=== PATIENT | female | born 1930 | race Caucasian/White ===

== ENCOUNTER 2017-03-12 19:00 | Inpatient (IN) | payer OTHER, BC ==
--- NOTE | 2017-03-12 19:31 | PDOC ---
History of Present Illness <Marilee Ruby - Last Filed: 03/12/17 21:41> <Anuradha Thakkar - Last Filed: 03/13/17 05:22> - General Chief Complaint: Shortness of Breath Stated Complaint: SOB Time Seen by Provider: 03/12/17 19:14 - History of Present Illness Initial Comments: 03/12/17 20:37 The patient is an 86-year-old female, with a significant past medical history of CHF and dementia, who was sent in by her PCP Dr. Solis for CHF exacerbation. Daughter states that the pt developed swelling in the lower extremities back in January, which was localized to her feet and ankles. Over the course of two months the swelling has progressively worsened and has radiated up to her knees bilaterally. She also developed abdominal distension within the last two days. She is currently on diuretics 2x a day. As per daughter, pt has been very lethargic and has not been getting much sleep at night. She does have nursing aides that stay overnight and give updates to the pt's daughter. Pt had an echo , chest x-ray, and doppler done last week. The chest x-ray revealed fluid in the lungs. She also had an US done of the lower extremities on the 04 of March that was negative for DVTs. Daughter states that the patient is unable to ambulate more than a few steps without her feeling short of breath. Daughter denies that the pt is experiencing any fever, chills, nausea, vomiting , diarrhea, or abdominal pain. She denies any chest pain. PCP: Dr. Solis (Marilee Ruby) Past History <Marilee Ruby - Last Filed: 03/12/17 21:41> - Past Medical History COPD: No Dementia: Yes - Suicide/Smoking/Psychosocial Hx Smoking History: Never smoked Hx Alcohol Use: No Drug/Substance Use Hx: No <Anuradha Thakkar - Last Filed: 03/13/17 05:22> - Past Medical History Allergies/Adverse Reactions: Allergies Allergy/AdvReac Type Severity Reaction Status Date / Time lamotrigine [From Lamictal] Allergy Rash Verified 03/12/17 19:02 Home Medications: Ambulatory Orders Furosemide [Lasix] 40 mg PO BID 03/12/17 Mirtazapine [Remeron -] 15 mg PO DAILY 03/12/17 Quetiapine Fumarate [Seroquel] tab PO HS 03/12/17 Trazodone HCl 50 mg PO HS 03/12/17 Review of Systems - Review of Systems Able to Perform ROS?: Yes <Marilee Ruby - Last Filed: 03/12/17 21:41> <Anuradha Thakkar - Last Filed: 03/13/17 05:22> - Review of Systems Comments:: 03/12/17 20:41 CONSTITUTIONAL: Present: lethargy Absent: fever, chills, diaphoresis, generalized weakness, malaise, loss of appetite HEENT: Absent: rhinorrhea, nasal congestion, throat pain, throat swelling, difficulty swallowing, mouth swelling, ear pain, eye pain, visual Changes CARDIOVASCULAR: Absent: chest pain, syncope, palpitations, irregular heart rate, lightheadedness , peripheral edema RESPIRATORY: Absent: cough, shortness of breath, dyspnea with exertion, orthopnea, wheezing, stridor, hemoptysis GASTROINTESTINAL: Present: abdominal distension Absent: abdominal pain, nausea, vomiting, diarrhea, constipation, melena, hematochezia GENITOURINARY: Absent: dysuria, frequency, urgency, hesitancy, hematuria, flank pain, genital pain MUSCULOSKELETAL: Absent: myalgia, arthralgia, joint swelling EXTREMITIES: Present: bilateral pitting edema of the lower extremities SKIN: Absent: rash, itching, pallor HEMATOLOGIC/IMMUNOLOGIC: Absent: easy bleeding, easy bruising, lymphadenopathy, frequent infections ENDOCRINE: Absent: unexplained weight gain, unexplained weight loss, heat intolerance, cold intolerance NEUROLOGIC: Absent: headache, focal weakness or paresthesias, dizziness, unsteady gait, seizure, mental status changes, bladder or bowel incontinence PSYCHIATRIC: Absent: anxiety, depression, suicidal or homicidal ideation, hallucinations. (TungMarilee) *Physical Exam <Yessenia Rubyie - Last Filed: 03/12/17 21:41> <Anuradha Thakkar - Last Filed: 03/13/17 05:22> - Vital Signs Last Vital Signs Temp Pulse Resp BP Pulse Ox 97.9 F 103 H 18 109/47 94 L 03/12/17 23:30 03/12/17 23:30 03/12/17 23:30 03/12/17 23:30 03/12/17 23:30 - Physical Exam Comments: 03/12/17 20:54 GENERAL: Awake and alert. No acute distress. HEENT: Normocephalic, atraumatic. PERRLA, EOMI. No conjunctival pallor. Sclera are non- icteric. Moist mucous membranes. Oropharynx is clear. NECK: Supple. Full ROM. No JVD. Carotid pulses 2+ and symmetric, without bruits. No thyromegaly. No lymphadenopathy. CARDIOVASCULAR: Regular rate and rhythm. No murmurs, rubs, or gallops. Distal pulses are 2+ and symmetric. PULMONARY: (+)Bilateral rales third of the way up. No wheezing or rhonchi. ABDOMINAL: (+)Abdomen was moderately distended especially in the bilateral lower quadrants. Non-tender. No rebound or guarding. No organomegaly. Normoactive bowel sounds. MUSCULOSKELETAL Normal range of motion at all joints. No bony deformities or tenderness. No CVA tenderness. EXTREMITIES: (+)3+ pitting edema to the thighs. Feet are cool to touch, mildly cyanotic bilaterally with fair cap refill. No skin breakdown noted. No clubbing. No calf tenderness. SKIN: Warm and dry. Normal capillary refill. No rashes. No jaundice. NEUROLOGICAL: Alert, awake. PSYCHIATRIC: Cooperative. Good eye contact. Appropriate mood and affect. (Marilee Ruby) ED Treatment Course - LABORATORY CBC & Chemistry Diagram: 03/12/17 19:55 03/12/17 19:55 <Marilee Ruby - Last Filed: 03/12/17 21:41> - LABORATORY CBC & Chemistry Diagram: 03/12/17 19:55 03/12/17 19:55 <Anuradha Thakkar - Last Filed: 03/13/17 05:22> - ADDITIONAL ORDERS Additional order review: Laboratory Results 03/12/17 03/12/17 03/12/17 19:55 19:55 19:55 PT with INR 12.3 INR 1.10 Sodium 137 Potassium 4.0 Chloride 100 Carbon Dioxide 28 Anion Gap 9 BUN 26 H D Creatinine 0.9 D Creat Clearance w eGFR 59.51 Random Glucose 95 Calcium 9.0 Total Bilirubin 0.9 AST 24 D ALT 28 D Alkaline Phosphatase 113 H D Creatine Kinase 64 Troponin I 0.21 B-Natriuretic Peptide 8008.39 H Total Protein 6.2 L Albumin 3.3 L 03/12/17 19:55 RBC 4.01 MCV 93.4 MCHC 33.4 RDW 14.8 MPV 11.3 H D Neutrophils % 71.6 Lymphocytes % 20.0 Monocytes % 5.1 Eosinophils % 2.3 Basophils % 1.0 - RADIOLOGY Radiology Studies Ordered: Category Date Time Status CHEST X-RAY PORTABLE* [RAD] Stat Radiology 03/12/17 19:48 Completed - Medications Given in the ED: ED Medications Discontinued Medications Generic Name Dose Route Start Last Admin Trade Name Shon PRN Reason Stop Dose Admin Furosemide 80 mg 03/12/17 20:59 03/12/17 21:05 Lasix Injection - IVPUSH 03/12/17 21:00 80 mg ONCE ONE Administration Progress Note <Marilee Ruby - Last Filed: 03/12/17 21:41> <Anuradha Thakkar - Last Filed: 03/13/17 05:22> - Progress Note Progress Note: Documentation has been prepared under my direction and personally reviewed by me in its entirety. I attest that this documented accurately reflects all work, treatment, procedures and medical decision making performed by me. (Anuradha Thakkar) Medical Decision Making <Marilee Ruby - Last Filed: 03/12/17 21:41> <Anuradha Thakkar - Last Filed: 03/13/17 05:22> - Medical Decision Making As noted above, this 86-year-old woman with a history of CHF and dementia was sent to the ER by Dr. Solis with rapidly progressive CHF over the last few weeks. Exam as noted above. Chest x-ray performed showed bilateral pleural effusions with cephalization of flow as noted on chest x-ray performed 2 days ago. There are somewhat increased markings in upper lung hawkins and no apparent change in effusions. Cardiomegaly is present Laboratory evaluation showed normal electrolytes with BUN of 26 and creatinine of 0.9. Troponin is elevated at 0.21. BNP is also markedly elevated at 8009. CBC is normal without elevation of the white blood cell count. Twelve-lead EKG performed and this shows normal sinus rhythm at 71 bpm. There is left axis deviation with poor R-wave progression. There are no acute ST or T -wave abnormalities. There is no previous tracing for comparison. Furosemide 80 mg IV administered. In-hospital admission warranted for cardiology consultation with close observation while diuresis progresses. [facility] hospitalist service contacted. Case discussed with SD Dong . The patient will be admitted to telemetry service 03/13/17 05:22 (Anuradha Thakkar) *DC/Admit/Observation/Transfer <Marilee Ruby - Last Filed: 03/12/17 21:41> - Discharge Dispostion Admit: Yes <Anuradha Thakkar - Last Filed: 03/13/17 05:22> Diagnosis at time of Disposition: CHF (congestive heart failure) Qualifiers: Congestive heart failure type: unspecified congestive heart failure type Congestive heart failure chronicity: acute on chronic Qualified Code(s): I50.9 - Heart failure, unspecified - Discharge Dispostion Condition at time of disposition: Stable Decision to Admit order Date/Time: Decision to Admit Order Category Date Time Status Decision to Admit to Hospital Routine Admission 03/12/17 22:03 Active - Attestations Scribe Attestion: 03/12/17 20:59 Documentation prepared by Marilee Ruby, acting as medical artist for Anuradha Thakkar MD. (Marilee Ruby)
[2017-03-12 20:19] LABS: ALBUMIN 3.3 g/dl (3.5-5.0); ALK PHOS 113 U/L (32-92); ANION GAP 9 (8-16); BILIRUBIN,TOTAL 0.9 mg/dl (0.2-1.0); CO2 28 mmol/L (22-28); CPK 64 IU/L (26-192); CREATININE 0.9 mg/dl (0.6-1.3); GLUCOSE,RANDOM 95 mg/dl (74-106); MEAN CELL VOLUME 93.4 fl (80-96); SGOT/AST 24 U/L (10-42); SGPT/ALT 28 U/L (10-40); TOT PROT 6.2 g/dl (6.4-8.3)
[2017-03-12 20:26] LABS: EOS % 2.3 % (0-4.5); MCH 31.2 pg (25.7-33.7); MCHC 33.4 g/dl (32.0-36.0); MEAN PLT VOLUME 11.3 fl (7.5-11.1); NEUT % 71.6 % (42.8-82.8); PLATELET COUNT 236 K/MM3 (134-434); RDW 14.8 % (11.6-15.6); WHITE BLOOD COUNT 7.3 K/mm3 (4.0-10.8)
[2017-03-12 20:39] LABS: TROPONIN I (DFP) 0.21 ng/ml (0.03-0.50)
[2017-03-12 20:49] LABS: INR 1.1 (0.82-1.09); PROTHROMBIN TIME (PATIENT) 12.3 SEC (10.2-13.0)
[2017-03-12] MEDS ORDERED: FUROSEMIDE 40 MG/4 ML INJECTABLE VIAL IVPUSH ONE (20:59)
[2017-03-12] MEDS ORDERED: FUROSEMIDE 40 MG/4 ML INJECTABLE VIAL ONE (21:02)
[2017-03-12 23:20] LABS: PH,URINE 5.5 (4.5-8); URINE APPEARANCE Clear; URINE BILIRUBIN Negative (NEGATIVE); URINE BLOOD Negative (NEGATIVE); URINE GLUCOSE (UA) Negative (NEGATIVE); URINE KETONE Negative (NEGATIVE); URINE LEUK ESTERASE Negative (NEGATIVE); URINE NITRITE Negative (NEGATIVE); URINE PROTEIN Negative (NEGATIVE); URINE UROBILINOGEN 0.2 (0.2-1.0)
[2017-03-12 23:21] LABS: URINE COLOR YELLOW
--- NOTE | 2017-03-13 00:21 | HP ---
CHIEF COMPLAINT: Leg swelling PCP: Irma HISTORY OF PRESENT ILLNESS: This is an 86 year old female with a significant PMH of CHF who presented to the ED with B/L leg swelling and abdominal distension. Pt's legs have been increasingly swollen since January and now swelling is throughout entire B/L LE. Daughter also noticed abdominal distention over the past 2 days. She has been following with Dr. Solis as an outpatient who has increased her home diuretic dose without improvement. Pt has dementia and is unable to provide any information. She does admit to some recent SOB upon questioning. ER course was notable for: (1) BNP 8008, Trop 0.21 (2) BUN 26/Cr 0.9 (3) Recent Travel: unknown PAST MEDICAL HISTORY: CHF, dementia, depression PAST SURGICAL HISTORY: lumpectomy Left breast ductal carcinoma cataract surgery Social History: Smoking: pt denies Alcohol: pt denies Drugs: pt denies Family History: unknown Allergies lamotrigine [From Lamictal] Allergy (Verified 03/12/17 19:02) Rash HOME MEDICATIONS: 3 Medication Instructions Recorded Furosemide [Lasix] 40 mg PO BID 03/12/17 Mirtazapine [Remeron -] 15 mg PO DAILY 03/12/17 Quetiapine Fumarate [Seroquel] tab PO HS 03/12/17 Trazodone HCl 50 mg PO HS 03/12/17 REVIEW OF SYSTEMS CONSTITUTIONAL: Absent: fever, chills, diaphoresis, generalized weakness, malaise, loss of appetite, weight change HEENT: Absent: rhinorrhea, nasal congestion, throat pain, throat swelling, difficulty swallowing, mouth swelling, ear pain, eye pain, visual changes CARDIOVASCULAR: Present: peripheral edema Absent: chest pain, syncope, palpitations, irregular heart rate, lightheadedness RESPIRATORY: Present: shortness of breath, dyspnea with exertion Absent: cough, orthopnea, wheezing, stridor, hemoptysis GASTROINTESTINAL: Absent: abdominal pain, abdominal distension, nausea, vomiting, diarrhea, constipation, melena, hematochezia GENITOURINARY: Absent: dysuria, frequency, urgency, hesitancy, hematuria, flank pain, genital pain MUSCULOSKELETAL: Absent: myalgia, arthralgia, joint swelling, back pain, neck pain SKIN: Absent: rash, itching, pallor HEMATOLOGIC/IMMUNOLOGIC: Absent: easy bleeding, easy bruising, lymphadenopathy, frequent infections ENDOCRINE: Absent: unexplained weight gain, unexplained weight loss, heat intolerance, cold intolerance NEUROLOGIC: Absent: headache, focal weakness or paresthesias, dizziness, unsteady gait, seizure, mental status changes, bladder or bowel incontinence PSYCHIATRIC: Absent: anxiety, depression, suicidal or homicidal ideation, hallucinations. PHYSICAL EXAMINATION Vital Signs - 24 hr 3 03/12/17 03/12/17 19:00 19:05 Pulse Rate 84 82 Respiratory 20 Rate Blood Pressure 121/62 O2 Sat by Pulse 96 98 Oximetry (%) GENERAL: Awake, alert, and fully oriented, in no acute distress. HEAD: Normal with no signs of trauma. EYES: Pupils equal, round and reactive to light, extraocular movements intact, sclera anicteric, conjunctiva clear. No lid lag. EARS, NOSE, THROAT: Ears normal, nares patent, oropharynx clear without exudates. Moist mucous membranes. NECK: Normal range of motion, supple without lymphadenopathy, JVD, or masses. LUNGS: Breath sounds equal, diminished bilateral bases, + crackles. No wheezes. No accessory muscle use. HEART: Regular rate and rhythm, normal S1 and S2 without murmur, rub or gallop. ABDOMEN: Soft, nontender, not distended, normoactive bowel sounds, no guarding, no rebound, no masses. No hepatomegaly or splenomegaly. MUSCULOSKELETAL: Normal range of motion at all joints. No bony deformities or tenderness. No CVA tenderness. UPPER EXTREMITIES: 2+ pulses, warm, well-perfused. No cyanosis. No clubbing. No peripheral edema. LOWER EXTREMITIES: 2+ pulses, warm, well-perfused. No calf tenderness. 3+ pitting peripheral edema ankles extending into thighs and buttocks, 1+ pitting in thighs. No edema noted in abdominal area NEUROLOGICAL: Cranial nerves II-XII intact. Normal speech. Normal gait. PSYCHIATRIC: Cooperative. Good eye contact. Appropriate mood and affect. SKIN: Warm, dry, normal turgor, no rashes or lesions noted, normal capillary refill. Laboratory Results - last 24 hr 3 03/12/17 03/12/17 03/12/17 19:55 19:55 19:55 WBC 7.3 RBC 4.01 Hgb 12.5 Hct 37.4 MCV 93.4 MCH 31.2 MCHC 33.4 RDW 14.8 Plt Count 236 MPV 11.3 H D Neutrophils % 71.6 Lymphocytes % 20.0 Monocytes % 5.1 Eosinophils % 2.3 Basophils % 1.0 PT with INR 12.3 INR 1.10 Sodium 137 Potassium 4.0 Chloride 100 Carbon Dioxide 28 Anion Gap 9 BUN 26 H D Creatinine 0.9 D Creat Clearance w eGFR 59.51 Random Glucose 95 Calcium 9.0 Total Bilirubin 0.9 AST 24 D ALT 28 D Alkaline Phosphatase 113 H D Creatine Kinase 64 Troponin I 0.21 B-Natriuretic Peptide 8008.39 H Total Protein 6.2 L Albumin 3.3 L Urine Color Urine Appearance Urine pH Ur Specific [place] Urine Protein Urine Glucose (UA) Urine Ketones Urine Blood Urine Nitrite Urine Bilirubin Urine Urobilinogen Ur Leukocyte Esterase 3 Urine Color Yellow 03/12/17 23:10 Urine Appearance Clear 03/12/17 23:10 Urine pH 5.5 (4.5-8) 03/12/17 23:10 Ur Specific [place] 1.015 (1.005-1.025) 03/12/17 23:10 Urine Protein Negative (NEGATIVE) 03/12/17 23:10 Urine Glucose (UA) Negative (NEGATIVE) 03/12/17 23:10 Urine Ketones Negative (NEGATIVE) 03/12/17 23:10 Urine Blood Negative (NEGATIVE) 03/12/17 23:10 Urine Nitrite Negative (NEGATIVE) 03/12/17 23:10 Urine Bilirubin Negative (NEGATIVE) 03/12/17 23:10 Ur Leukocyte Esterase Negative (NEGATIVE) 03/12/17 23:10 ECG NSR vent rate 71, QTC 471 Left axis deviation Inferior infarct, age undetermined Anterior infarct, age undetermined ST & T wave abnormality, TWI lead 1, aVL Radiology Reports Chest portable one view Clinical information: dyspnea Interstitial pulmonary vascular congestion is noted with moderate bilateral pleural effusions. There is resultant bibasilar compressive atelectasis. A superimposed basilar infiltrate would be difficult to exclude on a radiographic basis only. Correlate clinically. As on a previous exam of there is enlargement of the cardiac silhouette. The mediastinum and lisa demonstrate no obvious abnormality. Impression: Pulmonary vascular congestion with bilateral pleural effusions. Reported By: Tuan Poon MD 03/12/17 3300 ECHO 03/05/17 Left ventricular size and systolic function are normal, EF 60-65% diastolic dysfunction, grade 3 mod to severe LVH trivial aortic sclerosis mild aortic regurg mild mitral annular calcification, and mild MV thickening mod mitral regurg mod-severe tricuspid regurg small pericardial effusion (<1cm) moderate left pleural effusion ASSESSMENT/PLAN: 86yF with PMH CHF, dementia, depression presented to ED from PCP office with B/ L LE edema. acute on chronic diastolic CHF with pulmonary edema - given lasix 80mg IVP in ED, would cont same daily - cardiology consult, PCP requesting Alabre - consider adding metolazone but will defer to cardiology - echo done, as above - daily weights, I&O dementia/depression - mildly combative on exam - cont seroquel, monitor QTC - cont remeron DVT PPX - heparin BID FEN - po fluids as tolerated - BMP in am, monitor Cr closely - low sodium diet Dispo: The patient's condition has continued to decline despite appropriate outpatient management of her CHF with diuretics and she requires inpatient management of her emergent condition at this time. Her expected LOS is greater than 48h. Visit type - Emergency Visit Emergency Visit: Yes ED Registration Date: 03/12/17 Care time: The patient presented to the Emergency Department on the above date and was hospitalized for further evaluation of their emergent condition. - New Patient This patient is new to me today: Yes Date on this admission: 03/13/17 - Critical Care Critical Care patient: No
[2017-03-13 00:54] VITALS: BMI 25.1
[2017-03-13 02:36] LABS: TROPONIN I 0.21 ng/ml (0.00-0.05)
--- NOTE | 2017-03-13 07:59 | PN ---
Physical Exam: SUBJECTIVE: Patient seen and examined, agitated, denies any chest pain, does report dyspnea upon exertion OBJECTIVE: patient is a 86 y/o female with a past medical history of depression , diastolic congestive heart failure, and depression. Patient was admitted from the emergency department for acute on chronic diastolic congestive heart failure exacerbation. PCP: Dr Solis exchange architect: Dr Aceves Vital Signs Period Temp Pulse Resp BP Sys/Bardales Pulse Ox Last 24 Hr 97.9 F-98.1 F 69-103 18-20 100-121/47-62 94-98 GENERAL: The patient is awake, alert, and oriented times person, agitated HEAD: Normal with no signs of trauma. EYES: PERRL, extraocular movements intact, sclera anicteric, conjunctiva clear. No ptosis. ENT: Ears normal, nares patent, oropharynx clear without exudates, moist mucous membranes. NECK: Trachea midline, full range of motion, supple. LUNGS: Breath sounds equal, clear to auscultation bilaterally to apexes, crackles to bilateral bases, no wheezes, no accessory muscle use. HEART: Regular rate and rhythm, S1, S2 without murmur, rub or gallop. ABDOMEN: Soft, nontender, nondistended, normoactive bowel sounds, no guarding, no rebound, no hepatosplenomegaly, no masses. EXTREMITIES: 2+ pulses, warm, well-perfused, +3 edema bilaterally lower extremity. NEUROLOGICAL: Cranial nerves II through XII grossly intact. Normal speech, gait not observed. PSYCH: Normal mood, normal affect. SKIN: Warm, dry, normal turgor, no rashes or lesions noted, stage II cocycox and tinea under bilateral breasts Laboratory Results - last 24 hr CBC WBC 7.5 K/mm3 (4.0-10.8) 03/13/17 07:00 RBC 3.71 M/mm3 (3.60-5.2) 03/13/17 07:00 Hgb 11.6 GM/dl (10.7-15.3) 03/13/17 07:00 Hct 34.7 % (32.4-45.2) 03/13/17 07:00 MCV 93.5 fl (80-96) 03/13/17 07:00 MCH 31.1 pg (25.7-33.7) 03/13/17 07:00 MCHC 33.2 g/dl (32.0-36.0) 03/13/17 07:00 RDW 15.2 % (11.6-15.6) 03/13/17 07:00 Plt Count 235 K/MM3 (134-434) 03/13/17 07:00 MPV 12.1 fl (7.5-11.1) H 03/13/17 07:00 Neutrophils % 70.9 % (42.8-82.8) 03/13/17 07:00 Lymphocytes % 20.5 % (8-40) 03/13/17 07:00 Monocytes % 6.2 % (3.8-10.2) 03/13/17 07:00 Eosinophils % 1.4 % (0-4.5) 03/13/17 07:00 Basophils % 1.0 % (0-2.0) 03/13/17 07:00 CMP Sodium 139 mmol/L (136-145) 03/13/17 07:00 Potassium 3.7 mmol/L (3.5-5.1) 03/13/17 07:00 Chloride 104 mmol/L (98-107) 03/13/17 07:00 Carbon Dioxide 26 mmol/L (22-28) 03/13/17 07:00 Anion Gap 9 (8-16) 03/13/17 07:00 BUN 28 mg/dl (7-18) H 03/13/17 07:00 Creatinine 1.0 mg/dl (0.6-1.3) 03/13/17 07:00 Creat Clearance w eGFR 59.51 (>60) 03/12/17 19:55 Random Glucose 111 mg/dl (74-106) H 03/13/17 07:00 Calcium 8.6 mg/dl (8.4-10.2) 03/13/17 07:00 Phosphorus 4.3 mg/dl (2.5-4.6) 03/13/17 07:00 Magnesium 2.2 mg/dL (1.8-2.4) 03/13/17 07:00 Total Bilirubin 0.9 mg/dl (0.2-1.0) 03/12/17 19:55 AST 24 U/L (10-42) D 03/12/17 19:55 ALT 28 U/L (10-40) D 03/12/17 19:55 Alkaline Phosphatase 113 U/L (32-92) H D 03/12/17 19:55 Creatine Kinase 63 IU/L (26-192) 03/13/17 07:00 Troponin I 0.22 ng/ml (0.03-0.50) 03/13/17 07:00 B-Natriuretic Peptide 8008.39 pg/ml (5-450) H 03/12/17 19:55 Total Protein 6.2 g/dl (6.4-8.3) L 03/12/17 19:55 Albumin 3.3 g/dl (3.5-5.0) L 03/12/17 19:55 Laboratory Tests 03/12/17 03/13/17 03/13/17 19:55 02:00 07:00 Troponin I 0.21 0.21 H 0.22 Active Medications Generic Name Dose Route Start Last Admin Trade Name Freq PRN Reason Stop Dose Admin Furosemide 80 mg 03/13/17 10:00 Lasix Injection - IVPUSH DAILY PAULINA Heparin Sodium (Porcine) 5,000 unit 03/13/17 10:00 Heparin - SQ BID PAULINA Mirtazapine 15 mg 03/13/17 10:00 Remeron - PO DAILY PAULINA Quetiapine Fumarate 100 mg 03/13/17 22:00 Seroquel - PO HS PAULINA Trazodone HCl 50 mg 03/13/17 22:00 Desyrel - PO HS PAULINA IMAGING chest xray 03/12/17, bilateral pulmonary vascular congestion echo 03/05/17: moderated left pleural effusion, ef 60-65%, grade III diastolic dyfunction ASSESSMENT/PLAN: 1) cardiovascular acute on chronic diastolic congestive heart failure - continue lasix 40mg BID - daily weight, stict i/o - appreciate pulmonary input, moderate left pulmonary effusion noted on echo, patient may require thorancentesis - Dr Harrell, cardiology consulted and following 2) psych dementia - continue seroquel and trazodone - fall precautions f/e/n - low sodium diet - replete potassium ppx - pepcid - heparin -scd/moisés - oob dispo: patient requires inpatient telemetry admission - Visit type - Emergency Visit Emergency Visit: Yes ED Registration Date: 03/12/17 Care time: The patient presented to the Emergency Department on the above date and was hospitalized for further evaluation of their emergent condition. - New Patient This patient is new to me today: No - Critical Care Critical Care patient: No - Discharge Referral Referred to [facility] Med P.C.: No
[2017-03-13 08:44] LABS: EOS % 1.4 % (0-4.5); MCH 31.1 pg (25.7-33.7); MCHC 33.2 g/dl (32.0-36.0); MEAN CELL VOLUME 93.5 fl (80-96); MEAN PLT VOLUME 12.1 fl (7.5-11.1); NEUT % 70.9 % (42.8-82.8); PLATELET COUNT 235 K/MM3 (134-434); RDW 15.2 % (11.6-15.6); WHITE BLOOD COUNT 7.5 K/mm3 (4.0-10.8)
[2017-03-13 08:57] LABS: ANION GAP 9 (8-16); CALCIUM 8.6 mg/dl (8.4-10.2); CO2 26 mmol/L (22-28); CPK 63 IU/L (26-192); GLUCOSE,RANDOM 111 mg/dl (74-106); MAGNESIUM 2.2 mg/dL (1.8-2.4); PHOSPHOROUS 4.3 mg/dl (2.5-4.6)
[2017-03-13] MEDS ORDERED: FUROSEMIDE 40 MG/4 ML INJECTABLE VIAL IVPUSH ONE (09:15)
[2017-03-13] MEDS: HEPARIN NA (PORCINE) 5,000 UNITS/ML 1ML VIAL SQ SCH ×2 (09:25→21:41)
[2017-03-13] MEDS: NYSTATIN 100000 UNIT/GM TOPICAL OINTMENT 15 GM TUBE TP SCH ×2 (09:26→21:42)
[2017-03-13 09:44] LABS: TROPONIN I (DFP) 0.22 ng/ml (0.03-0.50)
[2017-03-13] MEDS ORDERED: FUROSEMIDE 40 MG/4 ML INJECTABLE VIAL IVPUSH SCH (10:00)
[2017-03-13] MEDS ORDERED: MIRTAZAPINE 15 MG TABLET (FP) PO SCH (10:00)
--- NOTE | 2017-03-13 11:20 | EKG ---
Test Reason : Blood Pressure : / mmHG Vent. Rate : 071 BPM Atrial Rate : 071 BPM P-R Int : 152 ms QRS Dur : 078 ms QT Int : 434 ms P-R-T Axes : 003 -55 114 degrees QTc Int : 471 ms NORMAL SINUS RHYTHM LEFT AXIS DEVIATION CANNOT RULE OUT INFERIOR INFARCT , AGE UNDETERMINED ANTERIOR INFARCT , AGE UNDETERMINED ABNORMAL ECG NO PREVIOUS ECGS AVAILABLE Confirmed by JEN SMILEY MD ([id number]) on 03/13/2017 11:19:52 AM Referred By: MD MORAN Confirmed By:JEN SMILEY MD
--- NOTE | 2017-03-13 11:26 | CON.CARD ---
Consult Consult Specialty:: Cardiology Referred by:: Carmen Thomas NP Reason for Consultation:: CHF - History of Present Illness Chief Complaint: SOB, pleural effusion, progresssive leg edema History of Present Illness: 86 yo female with dementia, reported PMH of CHF who was admitted on 03/12 with bilateral leg edema (since January) and abdominal distension over the past several days. Spoke with patient's daughter on phone (Raven) who reported that patient was hospitalize in [place] in January for reported "heart failure " but per daughter the diagnosis was not firm. She also reports that she was not seen by special officer at that time. She underwent an echocardiogram on which demonstrated normal LV systolic function, but mod to severe concentric LVH and grade III diastolic dysfunction (restrictive pattern), mod MR, mod to severe TR, and mild pulm HTN with PASP 49 mmHg. In ED, CXR demonstrated pulmonary congestion and bilateral pleural effusion. BNP 8008, Trops 0.21 -> 0.21 -> 0.22. Patient given furosemide 80 mg IVP x1. - History Source History Provided By: Family Member (Daughter - Raven), Medical Record Limitations to Obtaining History: Dementia - Past Medical History Cardio/Vascular: Yes: CHF Psych: Yes: Depression Additional Medical History: Recent Travel: unknown. PAST MEDICAL HISTORY: CHF , dementia, depression. PAST SURGICAL HISTORY: Social History: Smoking: pt denies. Alcohol: pt denies. Drugs: pt denies. Family History: unknown - Past Surgical History Past Surgical History: Yes: Cataract Removal Additional Surgical History: Lumpectomy of left breast for ductal carcinoma - Alcohol/Substance Use Hx Alcohol Use: No - Smoking History Smoking history: Never smoked Home Medications - Allergies Allergies/Adverse Reactions: Allergies Allergy/AdvReac Type Severity Reaction Status Date / Time lamotrigine [From Lamictal] Allergy Rash Verified 03/12/17 19:02 - Home Medications Home Medications: Ambulatory Orders Furosemide [Lasix] 40 mg PO BID 03/12/17 Mirtazapine [Remeron -] 15 mg PO DAILY 03/12/17 Quetiapine Fumarate [Seroquel] tab PO HS 03/12/17 Trazodone HCl 50 mg PO HS 03/12/17 Family Disease History - Family Disease History Family History: Unable to Obtain (Due to dementia) Review of Systems - Review of Systems Cardiovascular: reports: Edema, Shortness of Breath Gastrointestinal: reports: Other (Abdominal distension) Vital Signs: Vital Signs Temperature 97.5 F L 03/13/17 08:00 Pulse Rate 74 03/13/17 08:00 Respiratory Rate 18 03/13/17 09:00 Blood Pressure 121/55 03/13/17 08:00 O2 Sat by Pulse Oximetry (%) 94 L 03/13/17 09:00 Constitutional: Yes: No Distress Eyes: Yes: Conjunctiva Clear, EOM Intact HENT: Yes: Atraumatic, Normocephalic Respiratory: Yes: Diminished (at bilateral bases) Gastrointestinal: Yes: Normal Bowel Sounds. No: Tenderness Cardiovascular: Yes: Regular Rate and Rhythm JVD: Yes Heart Sounds: Yes: S1, S2 Murmur: No: Systolic Murmur Edema: Yes Edema: LLE: 2+, RLE: 2+ - Other Data Labs, Other Data: CBC, BMP 03/13/17 07:00 03/13/17 07:00 INR, PTT INR 1.10 (0.82-1.09) 03/12/17 19:55 Troponin, BNP 03/12/17 03/12/17 03/13/17 19:55 19:55 02:00 Troponin I 0.21 0.21 H B-Natriuretic Peptide 8008.39 H 03/13/17 07:00 Troponin I 0.22 B-Natriuretic Peptide Troponin, BNP 03/12/17 03/12/17 03/13/17 19:55 19:55 02:00 Troponin I 0.21 0.21 H B-Natriuretic Peptide 8008.39 H 03/13/17 07:00 Troponin I 0.22 B-Natriuretic Peptide 03/12/17: Sinus rhythm, rate 71 bpm, LAD, possible inferior infarct, possible anterior infarct, T wave inversion in I and aVL consider ischemia, low voltage QRS Echo: Report Reviewed (03/05/17: Normal LV size and systolic function, LVEF 60- 65%. Grade III diastolic dysfunction (restrictive pattern) with markedly increased LA pressure. Mod to severe concentric LVH. Trivial AV sclerosis. Mild AR. Mild MAC and MV thickening. Mod MR. Mod to severe TR. Mild pulm HTN w/ PASP 49 mmHg. Small pericardial effusion. Mod left pleural effusion.) Imaging - Results Chest X-ray: Report Reviewed (03/12/17: Pulmonary congestion, bilateral pleural effusions), Image Reviewed Ultrasound: Report Reviewed (03/04/17 Venous Doppler: Negative for DVTs) Assessment/Plan 86 yo female with dementia, who is admitted with acute diastolic heart failure/ heart failure with preserved EF (HFpEF) due to hypertrophic cardiomyopathy. Echo on 03/05/17 demonstrated normal LVEF with grade III diastolic dysfunction ( restrictive pattern) with mod to severe LVH, mod MR, mod to severe TR, and mild pulm HTN. Differential diagnosis for hypertrophic cardiomyopathy is infiltrative myocardial disease (e.g. amlyloidosis) versus hypertensive heart disease. Prognosis is poor given extent of diastolic dysfunction and patient's advanced age. RECS: Will continue diuresis with furosemide 40 mg IV bid. Monitor lytes and renal function with diuresis. Would consider diagnostic/therapeutic thoracentesis. Will consider beta-azeb therapy if patient's BP allows. Would also address patient's code status. Patient is likely to have recurrent admissions for heart failure. Will follow. Please call with questions.
[2017-03-13] MEDS ORDERED: POTASSIUM CHLORIDE TABS 20 MEQ TABLET.ER (FP) PO ONE (14:30)
[2017-03-13] MEDS: FUROSEMIDE 40 MG/4 ML INJECTABLE VIAL IVPUSH SCH (15:01)
--- NOTE | 2017-03-13 17:28 | PN ---
Progress Note (short form) - Note Progress Note: PULMONARY CONSULTATION DICTATED 03/13/17 IMP DYSPNEA DECOMENSATED CHF DIASTOLIC HYPERTROPHIC CARDIOMYOPATHY BILATERAL PLEURAL EFFUSIONS PULMONARY HTN DEMENTIA PLAN LASIX SUPPLEMENTAL O2 MONITOR LYTES,RENAL FUNCTION DAILY WTS F/U CHEST X-RAYS THORACENTESIS IF NO IMPROVEMENT DR KULKARNI Problem List - Problems (1) Dyspnea due to congestive heart failure Code(s): I50.9 - HEART FAILURE, UNSPECIFIED (2) CHF (congestive heart failure) Code(s): I50.9 - HEART FAILURE, UNSPECIFIED Qualifiers: Congestive heart failure type: unspecified congestive heart failure type Congestive heart failure chronicity: acute on chronic Qualified Code(s): I50.9 - Heart failure, unspecified (3) Pulmonary HTN Code(s): I27.20 - PULMONARY HYPERTENSION, UNSPECIFIED (4) Pleural effusion Code(s): J90 - PLEURAL EFFUSION, NOT ELSEWHERE CLASSIFIED (5) Dementia Code(s): F03.90 - UNSPECIFIED DEMENTIA WITHOUT BEHAVIORAL DISTURBANCE
[2017-03-13] MEDS: ALBUTEROL SO4 2.5/IPRATROPIUM 0.5 INH SOL 3 ML VIAL.NEB. NEB SCH (18:54)
[2017-03-13] MEDS ORDERED: QUEtiapine FUMARATE 100 MG TABLET (FP) PO SCH (20:15)
[2017-03-13] MEDS: MIRTAZAPINE 15 MG TABLET (FP) PO SCH (21:41)
[2017-03-13] MEDS: FAMOTIDINE 20 MG TABLET PO SCH (21:43)
[2017-03-13] MEDS: traZODone HCL 50 MG TABLET (FP) PO SCH (21:43)
[2017-03-13] MEDS ORDERED: traZODone HCL 50 MG TABLET (FP) PO SCH (22:00)
[2017-03-14] MEDS: ALBUTEROL SO4 2.5/IPRATROPIUM 0.5 INH SOL 3 ML VIAL.NEB. NEB SCH ×5 (00:17→23:54)
[2017-03-14] MEDS: FUROSEMIDE 40 MG/4 ML INJECTABLE VIAL IVPUSH SCH ×2 (05:26→13:43)
[2017-03-14 08:05] LABS: BASO % 1.3 % (0-2.0); EOS % 1.4 % (0-4.5); MCH 31.1 pg (25.7-33.7); MCHC 33.6 g/dl (32.0-36.0); MEAN CELL VOLUME 92.6 fl (80-96); MEAN PLT VOLUME 11.9 fl (7.5-11.1); NEUT % 76.7 % (42.8-82.8); PLATELET COUNT 231 K/MM3 (134-434); RDW 14.6 % (11.6-15.6); WHITE BLOOD COUNT 8.8 K/mm3 (4.0-10.8)
[2017-03-14 08:36] LABS: ANION GAP 10 (8-16); CALCIUM 8.9 mg/dl (8.4-10.2); CO2 27 mmol/L (22-28); GLUCOSE,RANDOM 119 mg/dl (74-106); MAGNESIUM 2.2 mg/dL (1.8-2.4)
--- NOTE | 2017-03-14 09:20 | PN ---
Physical Exam: SUBJECTIVE: Patient seen and examined. Indicates that she is feeling better. Denies SOB. OBJECTIVE: Vital Signs Period Temp Pulse Resp BP Sys/Bardales Pulse Ox Last 24 Hr 97.4 F-98.8 F 50-92 16-22 88-169/47-71 94-99 GENERAL: The patient is awake, alert, oriented to person (baseline). HEAD: Normal with no signs of trauma. EYES: PERRL, extraocular movements intact, sclera anicteric, conjunctiva clear. No ptosis. ENT: Ears normal, nares patent, oropharynx clear without exudates, moist mucous membranes. NECK: Trachea midline, full range of motion, supple. LUNGS: Scattered rales. No accessory muscle use. HEART: Regular rate and rhythm, S1, S2 without murmur, rub or gallop. ABDOMEN: Soft, nontender, nondistended, normoactive bowel sounds, no guarding, no rebound, no hepatosplenomegaly, no masses. EXTREMITIES: 2+ pulses, warm, well-perfused, 2+ pitting LE edema bilat. NEUROLOGICAL: Cranial nerves II through XII grossly intact. Normal speech, gait not observed. PSYCH: Normal mood, normal affect. SKIN: Warm, dry, normal turgor, no rashes or lesions noted Laboratory Results - last 24 hr 03/13/17 03/14/17 03/14/17 07:00 07:15 07:15 WBC 8.8 RBC 3.79 Hgb 11.8 Hct 35.1 MCV 92.6 MCH 31.1 MCHC 33.6 RDW 14.6 Plt Count 231 MPV 11.9 H Neutrophils % 76.7 Lymphocytes % 15.5 D Monocytes % 5.1 Eosinophils % 1.4 Basophils % 1.3 Sodium 140 Potassium 3.3 L Chloride 103 Carbon Dioxide 27 Anion Gap 10 BUN 25 H Creatinine 1.0 Random Glucose 119 H Calcium 8.9 Phosphorus 4.0 Magnesium 2.2 Troponin I 0.22 Active Medications Generic Name Dose Route Start Last Admin Trade Name Freq PRN Reason Stop Dose Admin Albuterol/Ipratropium 1 amp 03/13/17 17:45 03/14/17 05:25 Duoneb - NEB 1 amp QIDR PAULINA Administration Famotidine 20 mg 03/13/17 22:00 03/13/17 21:43 Pepcid - PO 20 mg BID PAULINA Administration Furosemide 40 mg 12/08/17 14:00 03/14/17 05:26 Lasix Injection - IVPUSH 40 mg BID@0600,1400 PAULINA Administration Heparin Sodium (Porcine) 5,000 unit 03/13/17 10:00 03/13/17 21:41 Heparin - SQ 5,000 unit BID PAULINA Administration Mirtazapine 15 mg 03/13/17 22:00 03/13/17 21:41 Remeron - PO 15 mg HS PAULINA Administration Nystatin 1 applic 03/13/17 10:00 03/13/17 21:42 Mycostatin Ointment - TP 1 applic BID PAULINA Administration Quetiapine Fumarate 100 mg 03/13/17 20:15 03/13/17 21:41 Seroquel - PO Not Given HS PAULINA Trazodone HCl 50 mg 03/13/17 20:15 03/13/17 21:43 Desyrel - PO 50 mg HS PAULINA Administration IMAGING chest xray 03/12/17, bilateral pulmonary vascular congestion echo 03/05/17: moderated left pleural effusion, ef 60-65%, grade III diastolic dyfunction ASSESSMENT/PLAN: 1) cardiovascular acute on chronic diastolic congestive heart failure - continue lasix 40mg BID - daily weight, stict i/o - appreciate pulmonary input, moderate left pulmonary effusion noted on echo, patient may require thorancentesis, although seems to be improving with diuresis alone - Dr Harrell, cardiology consulted and following 2) psych dementia - continue seroquel and trazodone - fall precautions f/e/n - low sodium diet - replete potassium ppx - pepcid - heparin -scd/moisés - oob dispo: patient requires inpatient telemetry admission - Visit type - Emergency Visit Emergency Visit: Yes ED Registration Date: 03/12/17 Care time: The patient presented to the Emergency Department on the above date and was hospitalized for further evaluation of their emergent condition. - New Patient This patient is new to me today: Yes Date on this admission: 03/15/17 - Critical Care Critical Care patient: No - Discharge Referral Referred to [facility] Med P.C.: No
[2017-03-14] MEDS: FAMOTIDINE 20 MG TABLET PO SCH ×2 (10:48→22:59)
[2017-03-14] MEDS: HEPARIN NA (PORCINE) 5,000 UNITS/ML 1ML VIAL SQ SCH ×2 (10:48→22:58)
--- NOTE | 2017-03-14 10:56 | PN ---
Progress Note, Physician History of Present Illness: She reports some improvement in her dyspnea with diuresis. - Current Medication List Current Medications: Active Medications Albuterol/Ipratropium (Duoneb -) 1 amp NEB QIDR [facility] Last Admin: 03/14/17 05:25 Dose: 1 amp Famotidine (Pepcid -) 20 mg PO BID [facility] Last Admin: 03/14/17 10:48 Dose: Not Given Furosemide (Lasix Injection -) 40 mg IVPUSH BID@0600,1400 [facility] Last Admin: 03/14/17 05:26 Dose: 40 mg Heparin Sodium (Porcine) (Heparin -) 5,000 unit SQ BID [facility] Last Admin: 03/14/17 10:48 Dose: 5,000 unit Mirtazapine (Remeron -) 15 mg PO [facility] Last Admin: 03/13/17 21:41 Dose: 15 mg Nystatin (Mycostatin Ointment -) 1 applic TP BID [facility] Last Admin: 03/13/17 21:42 Dose: 1 applic Quetiapine Fumarate (Seroquel -) 100 mg PO [facility] Last Admin: 03/13/17 21:41 Dose: Not Given Trazodone HCl (Desyrel -) 50 mg PO [facility] Last Admin: 03/13/17 21:43 Dose: 50 mg - Objective Vital Signs: Vital Signs Temperature 97.3 F L 03/14/17 09:40 Pulse Rate 82 03/14/17 09:40 Respiratory Rate 20 03/14/17 09:40 Blood Pressure 112/60 03/14/17 09:40 O2 Sat by Pulse Oximetry (%) 95 03/14/17 09:40 Constitutional: Yes: No Distress HENT: Yes: Atraumatic, Normocephalic Cardiovascular: Yes: Regular Rate and Rhythm, JVD Respiratory: Yes: Diminished (at bases bilaterally) Gastrointestinal: Yes: Normal Bowel Sounds, Soft. No: Tenderness Edema: LLE: Trace, RLE: Trace Neurological: Yes: Alert Labs: CBC, BMP 03/14/17 07:15 03/14/17 07:15 INR, PTT INR 1.10 (0.82-1.09) 03/12/17 19:55 - ....Imaging Chest X-ray: Report Reviewed (03/13: Pulmonary congestion, bilateral pleural effusions) Assessment/Plan 86 yo female with dementia, who is admitted with acute diastolic heart failure/ heart failure with preserved EF (HFpEF) due to hypertrophic cardiomyopathy. Echo on 03/05/17 demonstrated normal LVEF with grade III diastolic dysfunction ( restrictive pattern) with mod to severe LVH, mod MR, mod to severe TR, and mild pulm HTN. Differential diagnosis for hypertrophic cardiomyopathy is infiltrative myocardial disease (e.g. amlyloidosis) versus hypertensive heart disease. Prognosis is poor given extent of diastolic dysfunction and patient's advanced age. RECS: Will continue diuresis with furosemide 40 mg IV bid for now. Monitor lytes and renal function with diuresis. Will start oral KCl supplementation with 20 mEq po bid. Will repeat CXR tomorrow. Would consider diagnostic/therapeutic thoracentesis if significant pleural effusion persists. Will start low dose beta-azeb with metoprolol succinate 12.5 mg po daily. Would also address patient's code status. Patient is likely to have recurrent admissions for heart failure. Will follow. Please call with questions.
[2017-03-14] MEDS: NYSTATIN 100000 UNIT/GM TOPICAL OINTMENT 15 GM TUBE TP SCH ×2 (10:58→22:58)
--- NOTE | 2017-03-14 12:04 | CONS ---
PULMONARY CONSULTATION DATE OF CONSULTATION: 03/13/2017 REFERRING PHYSICIAN: Margot Arambula MD HISTORY OF PRESENT ILLNESS: History was obtained from the chart as well as from the patient's daughter. The patient is an 86-year-old white female with a past medical history of dementia, CHF and pulmonary hypertension. She is a nonsmoker. She was admitted to [facility] on March 12 with a one-week history of increasing shortness of breath and dyspnea on exertion. The patient states that for the past week or so, she started noticing increasing shortness of breath with minimal exertion. She has had increasing orthopnea. Apparently, last night, the patient told her daughter that she felt short of breath with some heaviness in her chest and she presented to the emergency room. In the ER, she was felt to be in congestive heart failure. She had a chest x-ray performed which revealed bilateral pleural effusions and pulmonary vascular congestion, and she was transferred up to the floor for further management. The patient underwent an echo on March 05 which revealed normal LV systolic function, moderate to severe concentric LVH, grade 3 diastolic dysfunction with a restrictive pattern, moderate regurgitation, moderate to severe tricuspid regurgitation, and mild pulmonary hypertension with a pulmonary artery pressure of 49. Apparently, for the past month or so, the patient has been noticing progressive lower extremity edema. Her daughter says it has been progressively increasing in severity now with abdominal bloating and swelling. PAST MEDICAL HISTORY: CHF and dementia. SOCIAL HISTORY: No occupational exposures. No tobacco. REVIEW OF SYSTEMS: Unable to obtain at this time secondary to patient's dementia. CURRENT MEDICATIONS: Heparin subcutaneously, Remeron, Desyrel, Seroquel, DuoNeb, Pepcid, Lasix, Mycostatin. PHYSICAL EXAMINATION: General: The patient is a thin, elderly, white female, well developed, awake, alert, in no acute distress. Vital Signs: She is currently afebrile. Blood pressure is 96/47, respiratory rate is 18, O2 saturation is 94 on room air. HEENT: Normocephalic, atraumatic. Neck: Supple. Heart: Regular S1, S2. Chest: A few bibasilar crackles. Abdomen: Soft. Bowel sounds positive. Extremities: Bilateral extremity edema. LABORATORY DATA: WBC is 7.5, hemoglobin 11.6, hematocrit 34.7, with platelet count of 235,000. BUN 28, creatinine 1.0. BNP is 8008. Troponin 0.21. Chest x-ray reveals cardiomegaly with bilateral pleural effusions and bilateral pulmonary vascular congestion. IMPRESSION: 1. Dyspnea secondary to decompensated congestive heart failure, diastolic. 2. Diastolic heart failure. 3. Hypertrophic cardiomyopathy. 4. Bilateral pleural effusions secondary to heart failure. 5. Pulmonary hypertension. 6. Dementia. PLAN: Continue Lasix, supplemental O2. Monitor electrolytes, renal function and daily weights. Obtain followup chest x-rays. If there is no improvement in her chest x-ray, we will consider thoracentesis. RONNY KULKARNI M.D. [id number]
[2017-03-14] MEDS: POTASSIUM CHLORIDE TABS 20 MEQ TABLET.ER (FP) PO SCH ×2 (12:09→22:58)
[2017-03-14] MEDS: METOPROLOL SUCCINATE 25 MG TAB.SR.24H (FP) PO SCH (12:10)
[2017-03-14] MEDS: traZODone HCL 50 MG TABLET (FP) PO SCH (22:57)
[2017-03-14] MEDS: MIRTAZAPINE 15 MG TABLET (FP) PO SCH (22:59)
[2017-03-14] MEDS: QUEtiapine FUMARATE 100 MG TABLET (FP) PO SCH (23:00)
[2017-03-15] MEDS: FUROSEMIDE 40 MG/4 ML INJECTABLE VIAL IVPUSH SCH ×2 (06:41→14:04)
[2017-03-15] MEDS: ALBUTEROL SO4 2.5/IPRATROPIUM 0.5 INH SOL 3 ML VIAL.NEB. NEB SCH ×3 (06:42→17:42)
--- NOTE | 2017-03-15 08:25 | PN ---
Progress Note, Physician History of Present Illness: No new complaints. - Current Medication List Current Medications: Active Medications Albuterol/Ipratropium (Duoneb -) 1 amp NEB QIDR [facility] Last Admin: 03/15/17 06:42 Dose: 1 amp Famotidine (Pepcid -) 20 mg PO BID [facility] Last Admin: 03/14/17 22:59 Dose: 20 mg Furosemide (Lasix Injection -) 40 mg IVPUSH BID@0600,1400 [facility] Last Admin: 03/15/17 06:41 Dose: 40 mg Heparin Sodium (Porcine) (Heparin -) 5,000 unit SQ BID [facility] Last Admin: 03/14/17 22:58 Dose: 5,000 unit Metoprolol Succinate (Toprol Xl -) 12.5 mg PO DAILY [facility] Last Admin: 03/14/17 12:10 Dose: 12.5 mg Mirtazapine (Remeron -) 15 mg PO [facility] Last Admin: 03/14/17 22:59 Dose: 15 mg Nystatin (Mycostatin Ointment -) 1 applic TP BID [facility] Last Admin: 03/14/17 22:58 Dose: 1 applic Potassium Chloride (K-Dur -) 20 meq PO BID [facility] Last Admin: 03/14/17 22:58 Dose: 20 meq Quetiapine Fumarate (Seroquel -) 12.5 mg PO [facility] Last Admin: 03/14/17 23:00 Dose: 12.5 mg Trazodone HCl (Desyrel -) 50 mg PO [facility] Last Admin: 03/14/17 22:57 Dose: 50 mg - Objective Vital Signs: Vital Signs Temperature 98.0 F 03/15/17 06:00 Pulse Rate 93 H 03/15/17 06:00 Respiratory Rate 20 03/15/17 06:00 Blood Pressure 97/61 03/15/17 06:00 O2 Sat by Pulse Oximetry (%) 98 03/15/17 06:00 Constitutional: Yes: No Distress HENT: Yes: Atraumatic, Normocephalic Cardiovascular: Yes: Regular Rate and Rhythm, JVD Respiratory: Yes: Diminished (at bases bilaterally) Gastrointestinal: Yes: Normal Bowel Sounds, Soft, Distention Edema: Yes Edema: LLE: 1+, RLE: 1+ Labs: INR, PTT INR 1.10 (0.82-1.09) 03/12/17 19:55 Assessment/Plan 86 yo female with dementia, who is admitted with acute diastolic heart failure/ heart failure with preserved EF (HFpEF) due to hypertrophic cardiomyopathy. Echo on 03/05/17 demonstrated normal LVEF with grade III diastolic dysfunction ( restrictive pattern) with mod to severe LVH, mod MR, mod to severe TR, and mild pulm HTN. Differential diagnosis for hypertrophic cardiomyopathy is infiltrative myocardial disease (e.g. amlyloidosis) versus hypertensive heart disease. Prognosis is poor given extent of diastolic dysfunction and patient's advanced age. RECS: Will continue diuresis with furosemide 40 mg IV bid for now. BMP pending today. Monitor lytes and renal function with diuresis. Continue oral KCl supplementation with 20 mEq po bid for now pending BMP results. Repeat CXR today pending. Would consider diagnostic/therapeutic thoracentesis if significant pleural effusion persists. Continue metoprolol succinate 12.5 mg po daily. Patient is likely to have recurrent admissions for heart failure. Will follow. Please call with questions.
[2017-03-15 08:58] LABS: BASO % 0.6 % (0-2.0); EOS % 2.5 % (0-4.5); MCH 31.6 pg (25.7-33.7); MCHC 33.4 g/dl (32.0-36.0); MEAN CELL VOLUME 94.7 fl (80-96); MEAN PLT VOLUME 12.7 fl (7.5-11.1); NEUT % 70.2 % (42.8-82.8); RDW 15.1 % (11.6-15.6); WHITE BLOOD COUNT 7.2 K/mm3 (4.0-10.8)
[2017-03-15 09:16] LABS: PLATELET COUNT 188 K/MM3 (134-434)
[2017-03-15] MEDS: METOPROLOL SUCCINATE 25 MG TAB.SR.24H (FP) PO SCH (09:44)
[2017-03-15] MEDS: FAMOTIDINE 20 MG TABLET PO SCH (09:44)
[2017-03-15] MEDS: POTASSIUM CHLORIDE TABS 20 MEQ TABLET.ER (FP) PO SCH ×2 (09:44→21:50)
[2017-03-15] MEDS: HEPARIN NA (PORCINE) 5,000 UNITS/ML 1ML VIAL SQ SCH ×2 (09:44→21:50)
[2017-03-15] MEDS: NYSTATIN 100000 UNIT/GM TOPICAL OINTMENT 15 GM TUBE TP SCH ×2 (09:46→21:50)
[2017-03-15 09:57] LABS: ANION GAP 11 (8-16); CALCIUM 8.9 mg/dl (8.4-10.2); CO2 26 mmol/L (22-28); GLUCOSE,RANDOM 99 mg/dl (74-106)
--- NOTE | 2017-03-15 10:54 | PN ---
<Shweta Leslie - Last Filed: 03/15/17 12:21> Physical Exam: SUBJECTIVE: Patient seen and examined, Symptoms are improved, but CXR is unchanged. OBJECTIVE: Vital Signs Period Temp Pulse Resp BP Sys/Bardales Pulse Ox Last 24 Hr 97.3 F-98.0 F 66-97 19-20 97-112/49-72 95-98 GENERAL: The patient is awake, alert, oriented x 1, in no acute distress. HEAD: Normal with no signs of trauma. EYES: PERRL, extraocular movements intact, sclera anicteric, conjunctiva clear. No ptosis. ENT: Ears normal, nares patent, oropharynx clear without exudates, moist mucous membranes. NECK: Trachea midline, full range of motion, supple. LUNGS: Scattered rales, breath sounds diminished at bases, no accessory muscle use. HEART: Regular rate and rhythm, S1, S2 without murmur, rub or gallop. ABDOMEN: Soft, nontender, nondistended, normoactive bowel sounds, no guarding, no rebound, no hepatosplenomegaly, no masses. EXTREMITIES: 2+ pulses, warm, well-perfused, 2+ pitting LE edema (documented as extending up to thighs on admission, now below knees only). NEUROLOGICAL: Cranial nerves II through XII grossly intact. Normal speech, gait not observed. PSYCH: Normal mood, normal affect. SKIN: Warm, dry, normal turgor, no rashes or lesions noted Laboratory Results - last 24 hr 03/15/17 03/15/17 06:00 06:00 WBC 7.2 RBC 3.65 Hgb 11.6 Hct 34.6 MCV 94.7 MCH 31.6 MCHC 33.4 RDW 15.1 Plt Count 188 MPV 12.7 H Neutrophils % 70.2 Lymphocytes % 20.9 D Monocytes % 5.8 Eosinophils % 2.5 Basophils % 0.6 Sodium 140 Potassium 3.8 Chloride 103 Carbon Dioxide 26 Anion Gap 11 BUN 26 H Creatinine 1.0 Random Glucose 99 Calcium 8.9 Active Medications Generic Name Dose Route Start Last Admin Trade Name Freq PRN Reason Stop Dose Admin Albuterol/Ipratropium 1 amp 03/13/17 17:45 03/15/17 06:42 Duoneb - NEB 1 amp QIDR PAULINA Administration Famotidine 20 mg 03/13/17 22:00 03/15/17 09:44 Pepcid - PO 20 mg BID PAULINA Administration Furosemide 40 mg 03/13/17 14:00 03/15/17 06:41 Lasix Injection - IVPUSH 40 mg BID@0600,1400 PAULINA Administration Heparin Sodium (Porcine) 5,000 unit 03/13/17 10:00 03/15/17 09:44 Heparin - SQ 5,000 unit BID PAULINA Administration Metoprolol Succinate 12.5 mg 03/14/17 11:00 03/15/17 09:44 Toprol Xl - PO 12.5 mg DAILY PAULINA Administration Mirtazapine 15 mg 03/13/17 22:00 03/14/17 22:59 Remeron - PO 15 mg HS PAULINA Administration Nystatin 1 applic 03/13/17 10:00 03/15/17 09:46 Mycostatin Ointment - TP 1 applic BID PAULINA Administration Potassium Chloride 20 meq 03/14/17 11:00 03/15/17 09:44 K-Dur - PO 20 meq BID PAULINA Administration Quetiapine Fumarate 12.5 mg 03/14/17 14:14 03/14/17 23:00 Seroquel - PO 12.5 mg HS PAULINA Administration Trazodone HCl 50 mg 03/13/17 20:15 03/14/17 22:57 Desyrel - PO 50 mg HS PAULINA Administration ASSESSMENT/PLAN: IMAGING chest xray 03/12/17, bilateral pulmonary vascular congestion chest xray 03/15, bilateral pleural effusions and congestive changes, uncha echo 03/05/17: moderated left pleural effusion, ef 60-65%, grade III diastolic dyfunction ASSESSMENT/PLAN: 1. CV [id number] diastolic congestive heart failure - continue lasix 40mg BID - daily weight, stict i/o - patient may require thorancentesis, although by exam seems to be improving with diuresis alone - Cardiology and pulmonary following 2. Neuro/psych Dementia -Continue Seroquel and Trazodone -Fall risk precautions 3. F/E/N -Low sodium diet -Replete lytes as indicated 4. Ppx -Sqh -No indication for GI ppx Dispo: Requires inpatient services - <Margot Arambula - Last Filed: 03/16/17 14:14> Physical Exam: SUBJECTIVE: Patient seen and examined OBJECTIVE: Vital Signs Period Temp Pulse Resp BP Sys/Bardales Pulse Ox Last 24 Hr 98.0 F-98.1 F 59-64 18-20 107-115/51-52 94-99 GENERAL: The patient is awake, alert, and fully oriented, in no acute distress. HEAD: Normal with no signs of trauma. EYES: PERRL, extraocular movements intact, sclera anicteric, conjunctiva clear. No ptosis. ENT: Ears normal, nares patent, oropharynx clear without exudates, moist mucous membranes. NECK: Trachea midline, full range of motion, supple. LUNGS: Breath sounds equal, clear to auscultation bilaterally, no wheezes, no crackles, no accessory muscle use. HEART: Regular rate and rhythm, S1, S2 without murmur, rub or gallop. ABDOMEN: Soft, nontender, nondistended, normoactive bowel sounds, no guarding, no rebound, no hepatosplenomegaly, no masses. EXTREMITIES: 2+ pulses, warm, well-perfused, no edema. NEUROLOGICAL: Cranial nerves II through XII grossly intact. Normal speech, gait not observed. PSYCH: Normal mood, normal affect. SKIN: Warm, dry, normal turgor, no rashes or lesions noted Laboratory Results - last 24 hr 03/16/17 03/16/17 07:23 07:23 WBC 8.6 RBC 3.84 Hgb 12.2 Hct 36.6 MCV 95.2 MCH 31.8 MCHC 33.4 RDW 15.1 Plt Count 214 MPV 12.8 H Neutrophils % 74.6 Lymphocytes % 17.3 Monocytes % 4.4 Eosinophils % 2.9 Basophils % 0.8 Sodium 140 Potassium 3.5 Chloride 101 Carbon Dioxide 29 H Anion Gap 10 BUN 24 H Creatinine 1.0 Random Glucose 120 H D Calcium 9.1 Magnesium 2.2 Active Medications Generic Name Dose Route Start Last Admin Trade Name Freq PRN Reason Stop Dose Admin Albuterol/Ipratropium 1 amp 03/13/17 17:45 03/16/17 11:45 Duoneb - NEB 1 amp QIDR PAULINA Administration Furosemide 40 mg 03/13/17 14:00 03/16/17 06:34 Lasix Injection - IVPUSH 40 mg BID@0600,1400 PAULINA Administration Heparin Sodium (Porcine) 5,000 unit 03/13/17 10:00 03/16/17 10:03 Heparin - SQ 5,000 unit BID PAULINA Administration Metoprolol Succinate 12.5 mg 03/14/17 11:00 03/16/17 10:03 Toprol Xl - PO 12.5 mg DAILY PAULINA Administration Mirtazapine 15 mg 03/13/17 22:00 03/15/17 21:51 Remeron - PO 15 mg HS PAULINA Administration Nystatin 1 applic 03/13/17 10:00 03/16/17 10:03 Mycostatin Ointment - TP 1 applic BID PAULINA Administration Potassium Chloride 20 meq 03/14/17 11:00 03/16/17 10:02 K-Dur - PO 20 meq BID PAULINA Administration Quetiapine Fumarate 12.5 mg 03/14/17 14:14 03/15/17 21:51 Seroquel - PO 12.5 mg HS PAULINA Administration Trazodone HCl 50 mg 03/13/17 20:15 03/15/17 21:50 Desyrel - PO 50 mg HS PAULINA Administration ASSESSMENT/PLAN:
[2017-03-15] MEDS: traZODone HCL 50 MG TABLET (FP) PO SCH (21:50)
[2017-03-15] MEDS: MIRTAZAPINE 15 MG TABLET (FP) PO SCH (21:51)
[2017-03-15] MEDS: QUEtiapine FUMARATE 100 MG TABLET (FP) PO SCH (21:51)
[2017-03-16] MEDS: ALBUTEROL SO4 2.5/IPRATROPIUM 0.5 INH SOL 3 ML VIAL.NEB. NEB SCH ×4 (01:25→18:30)
[2017-03-16] MEDS: FUROSEMIDE 40 MG/4 ML INJECTABLE VIAL IVPUSH SCH ×2 (06:34→14:27)
[2017-03-16 08:36] LABS: BASO % 0.8 % (0-2.0); EOS % 2.9 % (0-4.5); MCH 31.8 pg (25.7-33.7); MCHC 33.4 g/dl (32.0-36.0); MEAN CELL VOLUME 95.2 fl (80-96); MEAN PLT VOLUME 12.8 fl (7.5-11.1); NEUT % 74.6 % (42.8-82.8); PLATELET COUNT 214 K/MM3 (134-434); RDW 15.1 % (11.6-15.6); WHITE BLOOD COUNT 8.6 K/mm3 (4.0-10.8)
[2017-03-16 08:49] LABS: ANION GAP 10 (8-16); CALCIUM 9.1 mg/dl (8.4-10.2); CO2 29 mmol/L (22-28); GLUCOSE,RANDOM 120 mg/dl (74-106); MAGNESIUM 2.2 mg/dL (1.8-2.4)
--- NOTE | 2017-03-16 10:01 | PN ---
Progress Note, Physician History of Present Illness: PULMONARY ALERT,OOB-CHAIR,-RESP DISTRESS - Current Medication List Current Medications: Active Medications Albuterol/Ipratropium (Duoneb -) 1 amp NEB QIDR [facility] Last Admin: 03/16/17 06:34 Dose: 1 amp Furosemide (Lasix Injection -) 40 mg IVPUSH BID@0600,1400 [facility] Last Admin: 03/16/17 06:34 Dose: 40 mg Heparin Sodium (Porcine) (Heparin -) 5,000 unit SQ BID [facility] Last Admin: 03/15/17 21:50 Dose: 5,000 unit Metoprolol Succinate (Toprol Xl -) 12.5 mg PO DAILY [facility] Last Admin: 03/15/17 09:44 Dose: 12.5 mg Mirtazapine (Remeron -) 15 mg PO HS [facility] Last Admin: 03/15/17 21:51 Dose: 15 mg Nystatin (Mycostatin Ointment -) 1 applic TP BID [facility] Last Admin: 03/15/17 21:50 Dose: 1 applic Potassium Chloride (K-Dur -) 20 meq PO BID [facility] Last Admin: 03/15/17 21:50 Dose: 20 meq Quetiapine Fumarate (Seroquel -) 12.5 mg PO HS [facility] Last Admin: 03/15/17 21:51 Dose: 12.5 mg Trazodone HCl (Desyrel -) 50 mg PO HS [facility] Last Admin: 03/15/17 21:50 Dose: 50 mg - Objective Vital Signs: Vital Signs Temperature 98.0 F 03/16/17 06:00 Pulse Rate 64 03/16/17 06:00 Respiratory Rate 20 03/16/17 06:00 Blood Pressure 115/51 03/16/17 06:00 O2 Sat by Pulse Oximetry (%) 99 03/16/17 06:00 Constitutional: Yes: Well Nourished, Calm Eyes: Yes: WNL HENT: Yes: Nasal Congestion Neck: Yes: WNL Cardiovascular: Yes: Regular Rate and Rhythm, S1, S2 Respiratory: Yes: Diminished Gastrointestinal: Yes: Normal Bowel Sounds, Soft Extremities: Yes: WNL Edema: Yes Labs: CBC, BMP 03/16/17 07:23 03/16/17 07:23 INR, PTT INR 1.10 (0.82-1.09) 03/12/17 19:55 - ....Imaging Chest X-ray: Report Reviewed, Image Reviewed (BILATERAL CONGESTION,BERNY PLEURAL EFFUSIONS) Problem List - Problems (1) Dyspnea due to congestive heart failure Code(s): I50.9 - HEART FAILURE, UNSPECIFIED (2) CHF (congestive heart failure) Code(s): I50.9 - HEART FAILURE, UNSPECIFIED Qualifiers: Congestive heart failure type: unspecified congestive heart failure type Congestive heart failure chronicity: acute on chronic Qualified Code(s): I50.9 - Heart failure, unspecified (3) Pulmonary HTN Code(s): I27.20 - PULMONARY HYPERTENSION, UNSPECIFIED (4) Pleural effusion Code(s): J90 - PLEURAL EFFUSION, NOT ELSEWHERE CLASSIFIED (5) Dementia Code(s): F03.90 - UNSPECIFIED DEMENTIA WITHOUT BEHAVIORAL DISTURBANCE Assessment/Plan IMP DYSPNEA IMPROVING DECOMENSATED CHF DIASTOLIC HYPERTROPHIC CARDIOMYOPATHY BILATERAL PLEURAL EFFUSIONS PULMONARY HTN DEMENTIA PLAN CONTINUE LASIX SUPPLEMENTAL O2 MONITOR LYTES,RENAL FUNCTION DAILY WTS F/U CHEST X-RAYS THORACENTESIS IF NO IMPROVEMENT DR KULKARNI Problem List - Problems (1) Dyspnea due to congestive heart failure Code(s): I50.9 - HEART FAILURE, UNSPECIFIED (2) CHF (congestive heart failure) Code(s): I50.9 - HEART FAILURE, UNSPECIFIED Qualifiers: Congestive heart failure type: unspecified congestive heart failure type Congestive heart failure chronicity: acute on chronic Qualified Code(s): I50.9 - Heart failure, unspecified (3) Pulmonary HTN Code(s): I27.20 - PULMONARY HYPERTENSION, UNSPECIFIED (4) Pleural effusion Code(s): J90 - PLEURAL EFFUSION, NOT ELSEWHERE CLASSIFIED (5) Dementia Code(s): F03.90 - UNSPECIFIED DEMENTIA WITHOUT BEHAVIORAL DISTURBANCE
[2017-03-16] MEDS: POTASSIUM CHLORIDE TABS 20 MEQ TABLET.ER (FP) PO SCH ×2 (10:02→21:11)
[2017-03-16] MEDS: NYSTATIN 100000 UNIT/GM TOPICAL OINTMENT 15 GM TUBE TP SCH ×2 (10:03→21:13)
[2017-03-16] MEDS: METOPROLOL SUCCINATE 25 MG TAB.SR.24H (FP) PO SCH (10:03)
[2017-03-16] MEDS: HEPARIN NA (PORCINE) 5,000 UNITS/ML 1ML VIAL SQ SCH ×2 (10:03→21:11)
--- NOTE | 2017-03-16 14:13 | PN ---
Physical Exam: SUBJECTIVE: Patient seen and examined, confused appears comfortable. OBJECTIVE:patient is a 86 y/o female with a past medical history of depression, diastolic congestive heart failure, and depression. Patient was admitted from the emergency department for acute on chronic diastolic congestive heart failure exacerbation. PCP: Dr Solis dietitian teaching: Dr Aceves Vital Signs Period Temp Pulse Resp BP Sys/Bardales Pulse Ox Last 24 Hr 98.0 F-98.1 F 59-64 18-20 107-115/51-52 94-99 GENERAL: The patient is awake, alert, and oriented x 1, in no acute distress. HEAD: Normal with no signs of trauma. EYES: PERRL, extraocular movements intact, sclera anicteric, conjunctiva clear. No ptosis. ENT: Ears normal, nares patent, oropharynx clear without exudates, moist mucous membranes. NECK: Trachea midline, full range of motion, supple. LUNGS: Breath sounds equal, clear to auscultation bilaterally, diminished to bases, no wheezes, no crackles, no accessory muscle use. HEART: Regular rate and rhythm, S1, S2 without murmur, rub or gallop. ABDOMEN: Soft, nontender, nondistended, normoactive bowel sounds, no guarding, no rebound, no hepatosplenomegaly, no masses. EXTREMITIES: 2+ pulses, warm, well-perfused, + 2 edema to billateral lower extremities from knee down NEUROLOGICAL: Cranial nerves II through XII grossly intact. Normal speech, gait not observed. PSYCH: Normal mood, normal affect. SKIN: Warm, dry, normal turgor, no rashes or lesions noted Laboratory Results - last 24 hr 03/16/17 03/16/17 07:23 07:23 WBC 8.6 RBC 3.84 Hgb 12.2 Hct 36.6 MCV 95.2 MCH 31.8 MCHC 33.4 RDW 15.1 Plt Count 214 MPV 12.8 H Neutrophils % 74.6 Lymphocytes % 17.3 Monocytes % 4.4 Eosinophils % 2.9 Basophils % 0.8 Sodium 140 Potassium 3.5 Chloride 101 Carbon Dioxide 29 H Anion Gap 10 BUN 24 H Creatinine 1.0 Random Glucose 120 H D Calcium 9.1 Magnesium 2.2 Active Medications Generic Name Dose Route Start Last Admin Trade Name Freq PRN Reason Stop Dose Admin Albuterol/Ipratropium 1 amp 03/13/17 17:45 03/16/17 11:45 Duoneb - NEB 1 amp QIDR PAULINA Administration Furosemide 40 mg 03/13/17 14:00 03/16/17 06:34 Lasix Injection - IVPUSH 40 mg BID@0600,1400 PAULINA Administration Heparin Sodium (Porcine) 5,000 unit 03/13/17 10:00 03/16/17 10:03 Heparin - SQ 5,000 unit BID PAULINA Administration Metoprolol Succinate 12.5 mg 03/14/17 11:00 03/16/17 10:03 Toprol Xl - PO 12.5 mg DAILY PAULINA Administration Mirtazapine 15 mg 03/13/17 22:00 03/15/17 21:51 Remeron - PO 15 mg HS PAULINA Administration Nystatin 1 applic 03/13/17 10:00 03/16/17 10:03 Mycostatin Ointment - TP 1 applic BID PAULINA Administration Potassium Chloride 20 meq 03/14/17 11:00 03/16/17 10:02 K-Dur - PO 20 meq BID PAULINA Administration Quetiapine Fumarate 12.5 mg 03/14/17 14:14 03/15/17 21:51 Seroquel - PO 12.5 mg HS PAULINA Administration Trazodone HCl 50 mg 03/13/17 20:15 03/15/17 21:50 Desyrel - PO 50 mg HS PAULINA Administration IMAGING chest xray 03/12/17, bilateral pulmonary vascular congestion chest xray 03/15, bilateral pleural effusions and congestive changes, unchanged echo 03/05/17: moderated left pleural effusion, ef 60-65%, grade III diastolic dyfunction ASSESSMENT/PLAN: 1. CV [id number] diastolic congestive heart failure - continue lasix 40mg BID, 0.5 kg weight loss noted, repeat chest xray unchanged - daily weight, stict i/o - patient may require thorancentesis, although by exam seems to be improving with diuresis alone - Cardiology and pulmonary following 2. Neuro/psych Dementia -Continue Seroquel and Trazodone -Fall risk precautions 3. F/E/N -Low sodium diet -Replete lytes as indicated 4. Ppx -Sqh -No indication for GI ppx Dispo: lengthy conversation with daughter and agree with plan of care, Requires inpatient services - Visit type - Emergency Visit Emergency Visit: Yes ED Registration Date: 03/12/17 Care time: The patient presented to the Emergency Department on the above date and was hospitalized for further evaluation of their emergent condition. - New Patient This patient is new to me today: No - Critical Care Critical Care patient: No - Discharge Referral Referred to [facility] Med [facility] No
--- NOTE | 2017-03-16 17:03 | PN ---
Progress Note, Physician History of Present Illness: Back discomfort - Current Medication List Current Medications: Active Medications Albuterol/Ipratropium (Duoneb -) 1 amp NEB QIDR [facility] Last Admin: 03/16/17 11:45 Dose: 1 amp Furosemide (Lasix Injection -) 40 mg IVPUSH BID@0600,1400 [facility] Last Admin: 03/16/17 14:27 Dose: 40 mg Heparin Sodium (Porcine) (Heparin -) 5,000 unit SQ BID [facility] Last Admin: 03/16/17 10:03 Dose: 5,000 unit Metoprolol Succinate (Toprol Xl -) 12.5 mg PO DAILY [facility] Last Admin: 03/16/17 10:03 Dose: 12.5 mg Mirtazapine (Remeron -) 15 mg PO [facility] Last Admin: 03/15/17 21:51 Dose: 15 mg Nystatin (Mycostatin Ointment -) 1 applic TP BID [facility] Last Admin: 03/16/17 10:03 Dose: 1 applic Potassium Chloride (K-Dur -) 20 meq PO BID [facility] Last Admin: 03/16/17 10:02 Dose: 20 meq Quetiapine Fumarate (Seroquel -) 12.5 mg PO [facility] Last Admin: 03/15/17 21:51 Dose: 12.5 mg Trazodone HCl (Desyrel -) 50 mg PO [facility] Last Admin: 03/15/17 21:50 Dose: 50 mg - Objective Vital Signs: Vital Signs Temperature 98.0 F 03/16/17 14:28 Pulse Rate 95 H 03/16/17 14:28 Respiratory Rate 18 03/16/17 14:28 Blood Pressure 106/52 03/16/17 14:28 O2 Sat by Pulse Oximetry (%) 99 03/16/17 14:28 Constitutional: Yes: Other (looks uncomfortable, but not dyspneic) Eyes: Yes: Conjunctiva Clear HENT: Yes: Atraumatic Cardiovascular: Yes: Regular Rate and Rhythm Respiratory: Yes: Other (decr BS at bases). No: Rales, Rhonchi, Wheezes Gastrointestinal: Yes: Normal Bowel Sounds, Distention. No: Tenderness Extremities: Yes: Other (warm) Edema: Yes (1+) Peripheral Pulses WNL: Yes Neurological: Yes: Alert Labs: CBC, BMP 03/16/17 07:23 03/16/17 07:23 INR, PTT INR 1.10 (0.82-1.09) 03/12/17 19:55 Assessment/Plan 86 yo female with dementia, who is admitted with acute diastolic heart failure/ heart failure with preserved EF (HFpEF) due to hypertrophic cardiomyopathy. Echo on 03/05/17 demonstrated normal LVEF with grade III diastolic dysfunction ( restrictive pattern) with mod to severe LVH, mod MR, mod to severe TR, and mild pulm HTN. Differential diagnosis for hypertrophic cardiomyopathy is infiltrative myocardial disease (e.g. amlyloidosis) versus hypertensive heart disease. Prognosis is poor given extent of diastolic dysfunction and patient's advanced age. She is still overloaded, but has lost a couple of lbs RECS: Will continue diuresis with furosemide 40 mg IV bid for now. Monitor lytes and renal function with diuresis. Continue oral KCl supplementation with 20 mEq po bid for now pending BMP results. Follwo CXR -> Will consider diagnostic/therapeutic thoracentesis if significant pleural effusion persists. Continue metoprolol succinate 12.5 mg po daily. Patient is likely to have recurrent admissions for heart failure. D/w daughter at bedside
[2017-03-16] MEDS ORDERED: PT OWN MED DRAWER 7, Y5N ONE (21:08)
[2017-03-16] MEDS: traZODone HCL 50 MG TABLET (FP) PO SCH (21:12)
[2017-03-16] MEDS: QUEtiapine FUMARATE 100 MG TABLET (FP) PO SCH (21:13)
[2017-03-16] MEDS: MIRTAZAPINE 15 MG TABLET (FP) PO SCH (21:13)
[2017-03-17] MEDS: FUROSEMIDE 40 MG/4 ML INJECTABLE VIAL IVPUSH SCH ×2 (06:14→18:35)
[2017-03-17] MEDS: ALBUTEROL SO4 2.5/IPRATROPIUM 0.5 INH SOL 3 ML VIAL.NEB. NEB SCH ×4 (06:15→18:35)
[2017-03-17 07:36] LABS: BASO % 0.5 % (0-2.0); EOS % 3.2 % (0-4.5); MCH 31.2 pg (25.7-33.7); MCHC 33.1 g/dl (32.0-36.0); MEAN CELL VOLUME 94.2 fl (80-96); MEAN PLT VOLUME 10.6 fl (7.5-11.1); NEUT % 69.2 % (42.8-82.8); PLATELET COUNT 187 K/MM3 (134-434); RDW 14.8 % (11.6-15.6); WHITE BLOOD COUNT 6.9 K/mm3 (4.0-10.8)
[2017-03-17 07:54] LABS: ALBUMIN 3.1 g/dl (3.5-5.0); ALK PHOS 85 U/L (32-92); ANION GAP 4 (8-16); BILIRUBIN,TOTAL 0.9 mg/dl (0.2-1.0); CALCIUM 8.9 mg/dl (8.4-10.2); CO2 33 mmol/L (22-28); GLUCOSE,RANDOM 110 mg/dl (74-106); MAGNESIUM 2.1 mg/dL (1.8-2.4); PHOSPHOROUS 3.4 mg/dl (2.5-4.6); SGOT/AST 24 U/L (10-42); SGPT/ALT 25 U/L (10-40); TOT PROT 5.6 g/dl (6.4-8.3)
[2017-03-17] MEDS: NYSTATIN 100000 UNIT/GM TOPICAL OINTMENT 15 GM TUBE TP SCH ×2 (09:37→22:12)
[2017-03-17] MEDS: HEPARIN NA (PORCINE) 5,000 UNITS/ML 1ML VIAL SQ SCH ×2 (09:37→22:08)
[2017-03-17] MEDS: POTASSIUM CHLORIDE TABS 20 MEQ TABLET.ER (FP) PO SCH ×2 (09:38→22:07)
[2017-03-17] MEDS: METOPROLOL SUCCINATE 25 MG TAB.SR.24H (FP) PO SCH (09:38)
--- NOTE | 2017-03-17 09:42 | PN ---
Progress Note, Physician History of Present Illness: pulmonary alert,oob-chair,comfortable,-resp distress - Current Medication List Current Medications: Active Medications Albuterol/Ipratropium (Duoneb -) 1 amp NEB QIDR [facility] Last Admin: 03/17/17 06:15 Dose: 1 amp Furosemide (Lasix Injection -) 40 mg IVPUSH BID@0600,1400 [facility] Last Admin: 03/17/17 06:14 Dose: 40 mg Heparin Sodium (Porcine) (Heparin -) 5,000 unit SQ BID [facility] Last Admin: 03/17/17 09:37 Dose: 5,000 unit Metoprolol Succinate (Toprol Xl -) 12.5 mg PO DAILY [facility] Last Admin: 03/17/17 09:38 Dose: 12.5 mg Mirtazapine (Remeron -) 15 mg PO HS [facility] Last Admin: 03/16/17 21:13 Dose: 15 mg Nystatin (Mycostatin Ointment -) 1 applic TP BID [facility] Last Admin: 03/17/17 09:37 Dose: 1 applic Potassium Chloride (K-Dur -) 20 meq PO BID [facility] Last Admin: 03/17/17 09:38 Dose: 20 meq Quetiapine Fumarate (Seroquel -) 12.5 mg PO [facility] Last Admin: 03/16/17 21:13 Dose: 12.5 mg Trazodone HCl (Desyrel -) 50 mg PO HS [facility] Last Admin: 03/16/17 21:12 Dose: 50 mg - Objective Vital Signs: Vital Signs Temperature 97.8 F 03/17/17 09:32 Pulse Rate 71 03/17/17 09:32 Respiratory Rate 20 03/17/17 09:32 Blood Pressure 96/54 03/17/17 09:32 O2 Sat by Pulse Oximetry (%) 98 03/17/17 08:21 Constitutional: Yes: Calm, Thin Eyes: Yes: WNL HENT: Yes: WNL Neck: Yes: WNL Cardiovascular: Yes: Regular Rate and Rhythm, S1, S2 Respiratory: Yes: Diminished (diminished bs at bases bilaterally) Gastrointestinal: Yes: Normal Bowel Sounds, Soft Extremities: Yes: WNL Edema: Yes Labs: CBC, BMP 03/17/17 07:30 03/17/17 07:30 INR, PTT INR 1.10 (0.82-1.09) 03/12/17 19:55 Problem List - Problems (1) Dyspnea due to congestive heart failure Code(s): I50.9 - HEART FAILURE, UNSPECIFIED (2) CHF (congestive heart failure) Code(s): I50.9 - HEART FAILURE, UNSPECIFIED Qualifiers: Congestive heart failure type: unspecified congestive heart failure type Congestive heart failure chronicity: acute on chronic Qualified Code(s): I50.9 - Heart failure, unspecified (3) Pulmonary HTN Code(s): I27.20 - PULMONARY HYPERTENSION, UNSPECIFIED (4) Pleural effusion Code(s): J90 - PLEURAL EFFUSION, NOT ELSEWHERE CLASSIFIED (5) Dementia Code(s): F03.90 - UNSPECIFIED DEMENTIA WITHOUT BEHAVIORAL DISTURBANCE Assessment/Plan IMP DYSPNEA IMPROVING DECOMENSATED CHF DIASTOLIC HYPERTROPHIC CARDIOMYOPATHY BILATERAL PLEURAL EFFUSIONS PULMONARY HTN DEMENTIA PLAN CONTINUE LASIX SUPPLEMENTAL O2 MONITOR LYTES,RENAL FUNCTION DAILY WTS F/U CHEST X-RAYS THORACENTESIS IF NO IMPROVEMENT DR KULKARNI Problem List - Problems (1) Dyspnea due to congestive heart failure Code(s): I50.9 - HEART FAILURE, UNSPECIFIED (2) CHF (congestive heart failure) Code(s): I50.9 - HEART FAILURE, UNSPECIFIED Qualifiers: Congestive heart failure type: unspecified congestive heart failure type Congestive heart failure chronicity: acute on chronic Qualified Code(s): I50.9 - Heart failure, unspecified (3) Pulmonary HTN Code(s): I27.20 - PULMONARY HYPERTENSION, UNSPECIFIED (4) Pleural effusion Code(s): J90 - PLEURAL EFFUSION, NOT ELSEWHERE CLASSIFIED (5) Dementia Code(s): F03.90 - UNSPECIFIED DEMENTIA WITHOUT BEHAVIORAL DISTURBANCE
[2017-03-17] MEDS ORDERED: PT OWN MED DRAWER 7, Y5N ONE (10:01)
[2017-03-17] MEDS ORDERED: REFRIGERATED ANITBIOTICS ONE (10:01)
--- NOTE | 2017-03-17 11:14 | PN ---
Progress Note, Physician History of Present Illness: Feels better Sitting in chair - Current Medication List Current Medications: Active Medications Albuterol/Ipratropium (Duoneb -) 1 amp NEB QIDR [facility] Last Admin: 03/17/17 06:15 Dose: 1 amp Furosemide (Lasix Injection -) 40 mg IVPUSH BID@0600,1400 [facility] Last Admin: 03/17/17 06:14 Dose: 40 mg Heparin Sodium (Porcine) (Heparin -) 5,000 unit SQ BID [facility] Last Admin: 03/17/17 09:37 Dose: 5,000 unit Metoprolol Succinate (Toprol Xl -) 12.5 mg PO DAILY [facility] Last Admin: 03/17/17 09:38 Dose: 12.5 mg Mirtazapine (Remeron -) 15 mg PO [facility] Last Admin: 03/16/17 21:13 Dose: 15 mg Nystatin (Mycostatin Ointment -) 1 applic TP BID [facility] Last Admin: 03/17/17 09:37 Dose: 1 applic Potassium Chloride (K-Dur -) 20 meq PO BID [facility] Last Admin: 03/17/17 09:38 Dose: 20 meq Quetiapine Fumarate (Seroquel -) 12.5 mg PO [facility] Last Admin: 03/16/17 21:13 Dose: 12.5 mg Trazodone HCl (Desyrel -) 50 mg PO [facility] Last Admin: 03/16/17 21:12 Dose: 50 mg - Objective Vital Signs: Vital Signs Temperature 97.8 F 03/17/17 09:32 Pulse Rate 71 03/17/17 09:32 Respiratory Rate 20 03/17/17 09:32 Blood Pressure 96/54 03/17/17 09:32 O2 Sat by Pulse Oximetry (%) 98 03/17/17 08:21 Constitutional: Yes: No Distress Eyes: Yes: Conjunctiva Clear HENT: Yes: Atraumatic Neck: Yes: Supple Cardiovascular: Yes: Regular Rate and Rhythm Respiratory: Yes: Other (decr at bases). No: Rales, Rhonchi, Wheezes Gastrointestinal: Yes: Normal Bowel Sounds, Soft, Distention. No: Tenderness Extremities: Yes: Other (warm) Edema: Yes (trace -1+) Peripheral Pulses WNL: Yes Neurological: Yes: Other (awake) Labs: CBC, BMP 03/17/17 07:30 03/17/17 07:30 INR, PTT INR 1.10 (0.82-1.09) 03/12/17 19:55 Assessment/Plan 86 yo female with dementia, who is admitted with acute diastolic heart failure/ heart failure with preserved EF (HFpEF) due to hypertrophic cardiomyopathy. Echo on 03/05/17 demonstrated normal LVEF with grade III diastolic dysfunction ( restrictive pattern) with mod to severe LVH, mod MR, mod to severe TR, and mild pulm HTN. Differential diagnosis for hypertrophic cardiomyopathy is infiltrative myocardial disease (e.g. amlyloidosis) versus hypertensive heart disease. Prognosis is poor given extent of diastolic dysfunction and patient's advanced age/dementia She is still overloaded, but lost another lb overnight (total of 3 lbs) CXR still with b/l effusions K 3.7 on kcl 20 bid RECS: Will continue diuresis with furosemide 40 mg IV bid for now -> based on how much fluids get taken our via thoracentesis -. may skip the PM dose Monitor lytes and renal function with diuresis. Continue oral KCl supplementation with 20 mEq po bid IR evaluation for diagnostic/therapeutic thoracentesis given significant pleural effusion and slow progress in terms of diuresis Continue metoprolol succinate 12.5 mg po daily with holding parameters Patient is likely to have recurrent admissions for heart failure. D/W Colleen Aaron/cr DANIEL
--- NOTE | 2017-03-17 13:49 | PN ---
Physical Exam: SUBJECTIVE: Patient seen and examined, confused appears comfortable, sitting in bedside chair OBJECTIVE: patient is a 86 y/o female with a past medical history of depression , diastolic congestive heart failure, and depression. Patient was admitted from the emergency department for acute on chronic diastolic congestive heart failure exacerbation. PCP: Dr Solis automotive quality manager: Dr Aceves Vital Signs Period Temp Pulse Resp BP Sys/Bardales Pulse Ox Last 24 Hr 97.8 F-98.6 F 71-95 18-20 95-113/46-55 97-99 GENERAL: The patient is awake, alert, and fully oriented, in no acute distress. HEAD: Normal with no signs of trauma. EYES: PERRL, extraocular movements intact, sclera anicteric, conjunctiva clear. No ptosis. ENT: Ears normal, nares patent, oropharynx clear without exudates, moist mucous membranes. NECK: Trachea midline, full range of motion, supple. LUNGS: Breath sounds equal, clear to auscultation bilaterally to apexes, crackles to bases, no wheezes, no accessory muscle use. HEART: Regular rate and rhythm, S1, S2 without murmur, rub or gallop. ABDOMEN: Soft, nontender, nondistended, normoactive bowel sounds, no guarding, no rebound, no hepatosplenomegaly, no masses. EXTREMITIES: 2+ pulses, warm, well-perfused, no edema. NEUROLOGICAL: Cranial nerves II through XII grossly intact. Normal speech, gait not observed. PSYCH: Normal mood, normal affect. SKIN: Warm, dry, normal turgor, no rashes or lesions noted Laboratory Results - last 24 hr 03/17/17 03/17/17 07:30 07:30 WBC 6.9 RBC 3.70 Hgb 11.5 Hct 34.8 MCV 94.2 MCH 31.2 MCHC 33.1 RDW 14.8 Plt Count 187 MPV 10.6 D Neutrophils % 69.2 Lymphocytes % 20.9 D Monocytes % 6.2 Eosinophils % 3.2 Basophils % 0.5 Sodium 140 Potassium 3.7 Chloride 103 Carbon Dioxide 33 H Anion Gap 4 L BUN 24 H Creatinine 1.0 Creat Clearance w eGFR 52.69 Random Glucose 110 H Calcium 8.9 Phosphorus 3.4 Magnesium 2.1 Total Bilirubin 0.9 AST 24 ALT 25 Alkaline Phosphatase 85 D Total Protein 5.6 L Albumin 3.1 L Active Medications Generic Name Dose Route Start Last Admin Trade Name Adarshq PRN Reason Stop Dose Admin Albuterol/Ipratropium 1 amp 03/13/17 17:45 03/17/17 11:43 Duoneb - NEB 1 amp QIDR PAULINA Administration Furosemide 40 mg 03/13/17 14:00 03/17/17 06:14 Lasix Injection - IVPUSH 40 mg BID@0600,1400 PAULINA Administration Heparin Sodium (Porcine) 5,000 unit 03/13/17 10:00 03/17/17 09:37 Heparin - SQ 5,000 unit BID PAULINA Administration Metoprolol Succinate 12.5 mg 03/14/17 11:00 03/17/17 09:38 Toprol Xl - PO 12.5 mg DAILY PAULINA Administration Mirtazapine 15 mg 03/13/17 22:00 03/16/17 21:13 Remeron - PO 15 mg HS PAULINA Administration Nystatin 1 applic 03/13/17 10:00 03/17/17 09:37 Mycostatin Ointment - TP 1 applic BID PAULINA Administration Potassium Chloride 20 meq 03/14/17 11:00 03/17/17 09:38 K-Dur - PO 20 meq BID PAULINA Administration Quetiapine Fumarate 12.5 mg 03/14/17 14:14 03/16/17 21:13 Seroquel - PO 12.5 mg HS PAULINA Administration Trazodone HCl 50 mg 03/13/17 20:15 03/16/17 21:12 Desyrel - PO 50 mg HS PAULINA Administration IMAGING chest xray 03/12/17, bilateral pulmonary vascular congestion chest xray 03/15, bilateral pleural effusions and congestive changes, unchanged echo 03/05/17: moderated left pleural effusion, ef 60-65%, grade III diastolic dysfunction ASSESSMENT/PLAN: 1. CV [id number] diastolic congestive heart failure - continue lasix 40mg BID, 1.1 kg weight loss noted, repeat chest xray unchanged , will require thorancentesis, case discussed with IR, pending thorancentesis today. - daily weight, stict i/o - Cardiology and pulmonary following 2. Neuro/psych Dementia -Continue Seroquel and Trazodone -Fall risk precautions 3. F/E/N -Low sodium diet -Replete lytes as indicated 4. Ppx -Sqh -pepcid Dispo: lengthy conversation with daughter and agree with plan of care, Requires inpatient services - Visit type - Emergency Visit Emergency Visit: Yes ED Registration Date: 03/12/17 Care time: The patient presented to the Emergency Department on the above date and was hospitalized for further evaluation of their emergent condition. - New Patient This patient is new to me today: No - Critical Care Critical Care patient: No - Discharge Referral Referred to [facility] Med [facility].C[facility] No
[2017-03-17 19:30] LABS: GLUCOSE,PLEURAL FLUID 128.764; TOTAL PROTEIN,PLEURAL FLUID 2.002
[2017-03-17 19:31] LABS: PLEURAL FLUID COLOR YELLOW; PLEURAL FLUID SOURCE PLEURAL FLUID
[2017-03-17 20:46] LABS: PLEURAL FLUID APPEARANCE CLEAR
[2017-03-17] MEDS: QUEtiapine FUMARATE 100 MG TABLET (FP) PO SCH (22:06)
[2017-03-17] MEDS: MIRTAZAPINE 15 MG TABLET (FP) PO SCH (22:07)
[2017-03-17] MEDS: traZODone HCL 50 MG TABLET (FP) PO SCH (22:07)
[2017-03-17] MEDS: FAMOTIDINE 20 MG TABLET PO SCH (22:07)
[2017-03-17 23:50] LABS: PLEURAL FLUID LYMPHOCYTES 37 %; PLEURAL FLUID MACROPHAGES 23 %; PLEURAL FLUID NEUTROPHIL 2 %
[2017-03-18] MEDS: FUROSEMIDE 40 MG/4 ML INJECTABLE VIAL IVPUSH SCH ×2 (06:11→14:00)
[2017-03-18] MEDS: ALBUTEROL SO4 2.5/IPRATROPIUM 0.5 INH SOL 3 ML VIAL.NEB. NEB SCH ×4 (06:12→18:28)
--- NOTE | 2017-03-18 07:51 | PN ---
Progress Note, Physician History of Present Illness: pulmonary alert,oob-chair,-resp distress. pt s/p R thoracentesis tolerated procedure well w/o complications. pleural fluid c/w transudate - Current Medication List Current Medications: Active Medications Albuterol/Ipratropium (Duoneb -) 1 amp NEB QIDR [facility] Last Admin: 03/18/17 06:12 Dose: 1 amp Famotidine (Pepcid -) 20 mg PO BID [facility] Last Admin: 03/17/17 22:07 Dose: 20 mg Furosemide (Lasix Injection -) 40 mg IVPUSH BID@0600,1400 [facility] Last Admin: 03/18/17 06:11 Dose: 40 mg Heparin Sodium (Porcine) (Heparin -) 5,000 unit SQ BID [facility] Last Admin: 03/17/17 22:08 Dose: 5,000 unit Metoprolol Succinate (Toprol Xl -) 12.5 mg PO DAILY [facility] Last Admin: 03/17/17 09:38 Dose: 12.5 mg Mirtazapine (Remeron -) 15 mg PO [facility] Last Admin: 03/17/17 22:07 Dose: 15 mg Nystatin (Mycostatin Ointment -) 1 applic TP BID [facility] Last Admin: 03/17/17 22:12 Dose: 1 applic Potassium Chloride (K-Dur -) 20 meq PO BID [facility] Last Admin: 03/17/17 22:07 Dose: 20 meq Quetiapine Fumarate (Seroquel -) 12.5 mg PO [facility] Last Admin: 03/17/17 22:06 Dose: 12.5 mg Trazodone HCl (Desyrel -) 50 mg PO [facility] Last Admin: 03/17/17 22:07 Dose: 50 mg - Objective Vital Signs: Vital Signs Temperature 97.9 F 03/18/17 06:00 Pulse Rate 82 03/18/17 06:00 Respiratory Rate 20 03/18/17 06:00 Blood Pressure 101/47 03/18/17 06:00 O2 Sat by Pulse Oximetry (%) 97 03/18/17 06:00 Constitutional: Yes: Calm, Thin Eyes: Yes: WNL HENT: Yes: WNL Neck: Yes: WNL Cardiovascular: Yes: Regular Rate and Rhythm, S1, S2 Respiratory: Yes: Rales (few bibasilar crackles) Gastrointestinal: Yes: Normal Bowel Sounds, Soft Extremities: Yes: WNL Edema: Yes Labs: CBC, BMP Laboratory Tests 03/17/17 18:30 Pleural Fluid Source Pleural fluid Pleural Color Yellow Pleural Appearance Clear Pleural WBC 123 Pleural RBC 845 Pleural Neutrophils 2 Pleural Lymphocytes 37 Pleural Macrophages 23 Pleural Mesothelial 38 Pleural Total Protein 2.002 Pleural Albumin 1 Pleural LDH 67.166 Pleural Glucose 128.764 Pleural Amylase 14.979 Pleural Cholesterol < 50 Pleural Triglycerides 9 - ....Imaging Chest X-ray: Report Reviewed, Image Reviewed Problem List - Problems (1) Dyspnea due to congestive heart failure Code(s): I50.9 - HEART FAILURE, UNSPECIFIED (2) CHF (congestive heart failure) Code(s): I50.9 - HEART FAILURE, UNSPECIFIED Qualifiers: Congestive heart failure type: unspecified congestive heart failure type Congestive heart failure chronicity: acute on chronic Qualified Code(s): I50.9 - Heart failure, unspecified (3) Pulmonary HTN Code(s): I27.20 - PULMONARY HYPERTENSION, UNSPECIFIED (4) Pleural effusion Code(s): J90 - PLEURAL EFFUSION, NOT ELSEWHERE CLASSIFIED (5) Dementia Code(s): F03.90 - UNSPECIFIED DEMENTIA WITHOUT BEHAVIORAL DISTURBANCE Assessment/Plan IMP DYSPNEA IMPROVING DECOMENSATED CHF DIASTOLIC HYPERTROPHIC CARDIOMYOPATHY BILATERAL PLEURAL EFFUSIONS TRANSUDATE PULMONARY HTN DEMENTIA PLAN CONTINUE LASIX SUPPLEMENTAL O2 MONITOR LYTES,RENAL FUNCTION DAILY WTS F/U CHEST X-RAYS DR KULKARNI Problem List - Problems (1) Dyspnea due to congestive heart failure Code(s): I50.9 - HEART FAILURE, UNSPECIFIED (2) CHF (congestive heart failure) Code(s): I50.9 - HEART FAILURE, UNSPECIFIED Qualifiers: Congestive heart failure type: unspecified congestive heart failure type Congestive heart failure chronicity: acute on chronic Qualified Code(s): I50.9 - Heart failure, unspecified (3) Pulmonary HTN Code(s): I27.20 - PULMONARY HYPERTENSION, UNSPECIFIED (4) Pleural effusion Code(s): J90 - PLEURAL EFFUSION, NOT ELSEWHERE CLASSIFIED (5) Dementia Code(s): F03.90 - UNSPECIFIED DEMENTIA WITHOUT BEHAVIORAL DISTURBANCE
[2017-03-18] MEDS: HEPARIN NA (PORCINE) 5,000 UNITS/ML 1ML VIAL SQ SCH ×2 (10:10→21:22)
[2017-03-18] MEDS: POTASSIUM CHLORIDE TABS 20 MEQ TABLET.ER (FP) PO SCH ×2 (10:10→21:22)
[2017-03-18] MEDS: NYSTATIN 100000 UNIT/GM TOPICAL OINTMENT 15 GM TUBE TP SCH ×2 (10:10→21:23)
[2017-03-18] MEDS: FAMOTIDINE 20 MG TABLET PO SCH ×2 (10:10→21:21)
[2017-03-18] MEDS: METOPROLOL SUCCINATE 25 MG TAB.SR.24H (FP) PO SCH (10:11)
--- NOTE | 2017-03-18 14:35 | PN ---
Physical Exam: SUBJECTIVE: Patient seen and examined, sitting in bedside chair, confused appears comfortable OBJECTIVE: patient is a 86 y/o female with a past medical history of depression , diastolic congestive heart failure, and depression. Patient was admitted from the emergency department for acute on chronic diastolic congestive heart failure exacerbation. patient is s/p right thorancentesis, 1.4L, 03/17/17. PCP: Dr Solis artificial pearl maker: Dr Aceves Vital Signs Period Temp Pulse Resp BP Sys/Bardales Pulse Ox Last 24 Hr 97.7 F-98.2 F 82-100 19-20 101-116/47-59 95-97 GENERAL: The patient is awake, alert, and fully oriented, in no acute distress. HEAD: Normal with no signs of trauma. EYES: PERRL, extraocular movements intact, sclera anicteric, conjunctiva clear. No ptosis. ENT: Ears normal, nares patent, oropharynx clear without exudates, moist mucous membranes. NECK: Trachea midline, full range of motion, supple. LUNGS: Breath sounds equal, clear to auscultation bilaterally to apexes, crackles to bases, no wheezes, no accessory muscle use. HEART: Regular rate and rhythm, S1, S2 without murmur, rub or gallop. ABDOMEN: Soft, nontender, nondistended, normoactive bowel sounds, no guarding, no rebound, no hepatosplenomegaly, no masses. EXTREMITIES: 2+ pulses, warm, well-perfused, no edema. NEUROLOGICAL: Cranial nerves II through XII grossly intact. Normal speech, gait not observed. PSYCH: Normal mood, normal affect. SKIN: Warm, dry, normal turgor, no rashes or lesions noted Laboratory Results - last 24 hr 03/17/17 18:30 Pleural Fluid Source Pleural fluid Pleural Color Yellow Pleural Appearance Clear Pleural WBC 123 Pleural RBC 845 Pleural Neutrophils 2 Pleural Lymphocytes 37 Pleural Macrophages 23 Pleural Mesothelial 38 Pleural Total Protein 2.002 Pleural Albumin 1 Pleural LDH 67.166 Pleural Glucose 128.764 Pleural Amylase 14.979 Pleural Cholesterol < 50 Pleural Triglycerides 9 Active Medications Generic Name Dose Route Start Last Admin Trade Name Freq PRN Reason Stop Dose Admin Albuterol/Ipratropium 1 amp 03/13/17 17:45 03/18/17 12:59 Duoneb - NEB Not Given QIDR PAULINA Famotidine 20 mg 03/17/17 22:00 03/18/17 10:10 Pepcid - PO 20 mg BID PAULINA Administration Furosemide 40 mg 03/13/17 14:00 03/18/17 06:11 Lasix Injection - IVPUSH 40 mg BID@0600,1400 PAULINA Administration Heparin Sodium (Porcine) 5,000 unit 03/13/17 10:00 03/18/17 10:10 Heparin - SQ Not Given BID PAULINA Metoprolol Succinate 12.5 mg 03/14/17 11:00 03/18/17 10:11 Toprol Xl - PO 12.5 mg DAILY PAULINA Administration Mirtazapine 15 mg 03/13/17 22:00 03/17/17 22:07 Remeron - PO 15 mg HS PAULINA Administration Nystatin 1 applic 03/13/17 10:00 03/18/17 10:10 Mycostatin Ointment - TP 1 applic BID PAULINA Administration Potassium Chloride 20 meq 03/14/17 11:00 03/18/17 10:10 K-Dur - PO 20 meq BID PAULINA Administration Quetiapine Fumarate 12.5 mg 03/14/17 14:14 03/17/17 22:06 Seroquel - PO 12.5 mg HS PAULINA Administration Trazodone HCl 50 mg 03/13/17 20:15 03/17/17 22:07 Desyrel - PO 50 mg HS PAULINA Administration Microbiology 03/17/17 18:30 Pleural Fluid GABRIELLE Preparation - Preliminary 03/17/17 18:30 Pleural Fluid Fungal Culture - Preliminary IMAGING chest xray 03/12/17, bilateral pulmonary vascular congestion chest xray 03/15, bilateral pleural effusions and congestive changes, unchanged echo 03/05/17: moderated left pleural effusion, ef 60-65%, grade III diastolic dysfunction ASSESSMENT/PLAN: 1. CV [id number] diastolic congestive heart failure - continue lasix 40mg BID, 2.4 kg weight loss noted, pt is s/p right thorancentesis (03/17) 1.4liters removed, pending left thoranentesis today - daily weight, stict i/o - Cardiology and pulmonary following 2. Neuro/psych Dementia -Continue Seroquel and Trazodone -Fall risk precautions 3. F/E/N -Low sodium diet -Replete lytes as indicated 4. Ppx -Sqh -pepcid Dispo: lengthy conversation with daughter and agree with plan of care, Requires inpatient services -
--- NOTE | 2017-03-18 15:30 | PN ---
Progress Note, Physician History of Present Illness: No new complaints. - Current Medication List Current Medications: Active Medications Albuterol/Ipratropium (Duoneb -) 1 amp NEB QIDR [facility] Last Admin: 03/18/17 12:59 Dose: Not Given Famotidine (Pepcid -) 20 mg PO BID [facility] Last Admin: 03/18/17 10:10 Dose: 20 mg Furosemide (Lasix Injection -) 40 mg IVPUSH BID@0600,1400 [facility] Last Admin: 03/18/17 06:11 Dose: 40 mg Heparin Sodium (Porcine) (Heparin -) 5,000 unit SQ BID [facility] Last Admin: 03/18/17 10:10 Dose: Not Given Metoprolol Succinate (Toprol Xl -) 12.5 mg PO DAILY [facility] Last Admin: 03/18/17 10:11 Dose: 12.5 mg Mirtazapine (Remeron -) 15 mg PO [facility] Last Admin: 03/17/17 22:07 Dose: 15 mg Nystatin (Mycostatin Ointment -) 1 applic TP BID [facility] Last Admin: 03/18/17 10:10 Dose: 1 applic Potassium Chloride (K-Dur -) 20 meq PO BID [facility] Last Admin: 03/18/17 10:10 Dose: 20 meq Quetiapine Fumarate (Seroquel -) 12.5 mg PO [facility] Last Admin: 03/17/17 22:06 Dose: 12.5 mg Trazodone HCl (Desyrel -) 50 mg PO [facility] Last Admin: 03/17/17 22:07 Dose: 50 mg - Objective Vital Signs: Vital Signs Temperature 97.7 F 03/18/17 13:51 Pulse Rate 88 03/18/17 13:51 Respiratory Rate 20 03/18/17 13:51 Blood Pressure 107/59 03/18/17 13:51 O2 Sat by Pulse Oximetry (%) 97 03/18/17 08:45 Constitutional: Yes: No Distress HENT: Yes: Atraumatic, Normocephalic Cardiovascular: Yes: Regular Rate and Rhythm. No: Murmur Respiratory: Yes: Diminished (at bases) Gastrointestinal: Yes: Normal Bowel Sounds, Soft. No: Tenderness Edema: Yes Labs: CBC, BMP 03/17/17 07:30 03/17/17 07:30 INR, PTT INR 1.10 (0.82-1.09) 03/12/17 19:55 Assessment/Plan 86 yo female with dementia, who is admitted with acute diastolic heart failure/ heart failure with preserved EF (HFpEF) due to hypertrophic cardiomyopathy. Echo on 03/05/17 demonstrated normal LVEF with grade III diastolic dysfunction ( restrictive pattern) with mod to severe LVH, mod MR, mod to severe TR, and mild pulm HTN. Differential diagnosis for hypertrophic cardiomyopathy is infiltrative myocardial disease (e.g. amlyloidosis) versus hypertensive heart disease. Prognosis is poor given extent of diastolic dysfunction and patient's advanced age. Patient underwent right sided thoracentesis on 03/17/17 with removal of 1400 cc of transudative fluid RECS: Continue diuresis with furosemide 40 mg IV bid for now. Monitor lytes and renal function with diuresis. Continue oral KCl supplementation with 20 mEq po bid. Monitor K+. Patient pending left sided thoracentesis today. Continue metoprolol succinate 12.5 mg po daily. Patient is likely to have recurrent admissions for heart failure. Will follow. Please call with questions.
[2017-03-18 17:20] LABS: GLUCOSE,PLEURAL FLUID 114.722; TOTAL PROTEIN,PLEURAL FLUID 1.941
[2017-03-18 17:29] LABS: PLEURAL FLUID APPEARANCE CLEAR; PLEURAL FLUID COLOR YELLOW; PLEURAL FLUID SOURCE PLEURAL FLUID
[2017-03-18] MEDS: QUEtiapine FUMARATE 100 MG TABLET (FP) PO SCH (21:21)
[2017-03-18] MEDS: traZODone HCL 50 MG TABLET (FP) PO SCH (21:22)
[2017-03-18] MEDS: MIRTAZAPINE 15 MG TABLET (FP) PO SCH (21:22)
[2017-03-18 22:11] LABS: PLEURAL FLUID LYMPHOCYTES 60 %; PLEURAL FLUID MACROPHAGES 32 %; PLEURAL FLUID NEUTROPHIL 3 %
[2017-03-19] MEDS: ALBUTEROL SO4 2.5/IPRATROPIUM 0.5 INH SOL 3 ML VIAL.NEB. NEB SCH ×5 (05:38→17:48)
--- NOTE | 2017-03-19 07:32 | PN ---
Progress Note, Physician History of Present Illness: pulmonary alert,appears in nad. pt s/p left thoracentesis tolerated procedure well w//o complications. pleural fluid c/w transudate - Current Medication List Current Medications: Active Medications Albuterol/Ipratropium (Duoneb -) 1 amp NEB QIDR [facility] Last Admin: 03/19/17 07:11 Dose: Not Given Famotidine (Pepcid -) 20 mg PO BID [facility] Last Admin: 03/18/17 21:21 Dose: 20 mg Furosemide (Lasix Injection -) 40 mg IVPUSH DAILY [facility] Heparin Sodium (Porcine) (Heparin -) 5,000 unit SQ BID [facility] Last Admin: 03/18/17 21:22 Dose: 5,000 unit Metoprolol Succinate (Toprol Xl -) 12.5 mg PO DAILY [facility] Last Admin: 03/18/17 10:11 Dose: 12.5 mg Mirtazapine (Remeron -) 15 mg PO HS [facility] Last Admin: 03/18/17 21:22 Dose: 15 mg Nystatin (Mycostatin Ointment -) 1 applic TP BID [facility] Last Admin: 03/18/17 21:23 Dose: 1 applic Potassium Chloride (K-Dur -) 20 meq PO BID [facility] Last Admin: 03/18/17 21:22 Dose: 20 meq Quetiapine Fumarate (Seroquel -) 12.5 mg PO HS [facility] Last Admin: 03/18/17 21:21 Dose: 12.5 mg Trazodone HCl (Desyrel -) 50 mg PO HS [facility] Last Admin: 03/18/17 21:22 Dose: 50 mg - Objective Vital Signs: Vital Signs Temperature 97.9 F 03/19/17 06:00 Pulse Rate 67 03/19/17 06:00 Respiratory Rate 19 03/19/17 06:00 Blood Pressure 93/67 03/19/17 06:00 O2 Sat by Pulse Oximetry (%) 98 03/18/17 23:26 Constitutional: Yes: Calm, Thin Eyes: Yes: WNL HENT: Yes: WNL Neck: Yes: WNL Cardiovascular: Yes: Regular Rate and Rhythm, S1, S2 Respiratory: Yes: Rales (bibasilar crackles) Gastrointestinal: Yes: Normal Bowel Sounds, Soft Extremities: Yes: WNL Edema: No Labs: Laboratory Tests 03/18/17 15:30 Pleural Fluid Source Pleural fluid Pleural Color Yellow Pleural Appearance Clear Pleural WBC 266 Pleural RBC 338 Pleural Neutrophils 3 Pleural Lymphocytes 60 Pleural Monocytes 3 Pleural Macrophages 32 Pleural Mesothelial 2 Pleural Total Protein 1.941 Pleural Albumin 1 Pleural LDH 69 Pleural Glucose 114.722 Pleural Amylase 15.188 Problem List - Problems (1) Dyspnea due to congestive heart failure Code(s): I50.9 - HEART FAILURE, UNSPECIFIED (2) CHF (congestive heart failure) Code(s): I50.9 - HEART FAILURE, UNSPECIFIED Qualifiers: Congestive heart failure type: unspecified congestive heart failure type Congestive heart failure chronicity: acute on chronic Qualified Code(s): I50.9 - Heart failure, unspecified (3) Pulmonary HTN Code(s): I27.20 - PULMONARY HYPERTENSION, UNSPECIFIED (4) Pleural effusion Code(s): J90 - PLEURAL EFFUSION, NOT ELSEWHERE CLASSIFIED (5) Dementia Code(s): F03.90 - UNSPECIFIED DEMENTIA WITHOUT BEHAVIORAL DISTURBANCE Assessment/Plan IMP DYSPNEA IMPROVING DECOMENSATED CHF DIASTOLIC HYPERTROPHIC CARDIOMYOPATHY BILATERAL PLEURAL EFFUSIONS TRANSUDATE PULMONARY HTN DEMENTIA PLAN LASIX SUPPLEMENTAL O2 MONITOR LYTES,RENAL FUNCTION DAILY WTS F/U CHEST X-RAYS DR KULKARNI Problem List - Problems (1) Dyspnea due to congestive heart failure Code(s): I50.9 - HEART FAILURE, UNSPECIFIED (2) CHF (congestive heart failure) Code(s): I50.9 - HEART FAILURE, UNSPECIFIED Qualifiers: Congestive heart failure type: unspecified congestive heart failure type Congestive heart failure chronicity: acute on chronic Qualified Code(s): I50.9 - Heart failure, unspecified (3) Pulmonary HTN Code(s): I27.20 - PULMONARY HYPERTENSION, UNSPECIFIED (4) Pleural effusion Code(s): J90 - PLEURAL EFFUSION, NOT ELSEWHERE CLASSIFIED (5) Dementia Code(s): F03.90 - UNSPECIFIED DEMENTIA WITHOUT BEHAVIORAL DISTURBANCE
[2017-03-19 09:43] LABS: ANION GAP 7 (8-16); CALCIUM 8.9 mg/dl (8.4-10.2); CO2 34 mmol/L (22-28); CREATININE 0.9 mg/dl (0.6-1.3); GLUCOSE,RANDOM 96 mg/dl (74-106)
[2017-03-19] MEDS: FAMOTIDINE 20 MG TABLET PO SCH ×2 (09:56→21:50)
[2017-03-19] MEDS: NYSTATIN 100000 UNIT/GM TOPICAL OINTMENT 15 GM TUBE TP SCH ×2 (09:57→21:59)
[2017-03-19] MEDS: HEPARIN NA (PORCINE) 5,000 UNITS/ML 1ML VIAL SQ SCH ×2 (09:57→21:51)
[2017-03-19] MEDS: POTASSIUM CHLORIDE TABS 20 MEQ TABLET.ER (FP) PO SCH (09:57)
[2017-03-19] MEDS: METOPROLOL SUCCINATE 25 MG TAB.SR.24H (FP) PO SCH (10:00)
[2017-03-19] MEDS ORDERED: FUROSEMIDE 40 MG/4 ML INJECTABLE VIAL IVPUSH SCH (10:00)
[2017-03-19 12:03] LABS: ARTERIAL BLD GAS O2 SATURATION 99.1 % (90-98.9)
[2017-03-19 12:12] LABS: ARTERIAL BLOOD GAS HCO3 25.9 meq/L (22-26); ARTERIAL BLOOD GAS pH 7.43 (7.35-7.45)
[2017-03-19 12:13] LABS: ALLENS TEST POSITIVE; ART PUNCT SITE LEFT RADIAL; LPM/O2% 4; MECH. VENT. NO; PT. ON O2? YES; TYPE OF O2 NASAL CANNULA
--- NOTE | 2017-03-19 14:52 | PN ---
Physical Exam: SUBJECTIVE: Patient seen and examined, confused appears comfortable OBJECTIVE: patient is a 86 y/o female with a past medical history of depression , diastolic congestive heart failure, and depression. Patient was admitted from the emergency department for acute on chronic diastolic congestive heart failure exacerbation. patient is s/p right thorancentesis, 1.4L, 03/17/17. left thorancentesis 0.5L 03/18/17 PCP: Dr Solis larriman: Dr Aceves Vital Signs Period Temp Pulse Resp BP Sys/Bardales Pulse Ox Last 24 Hr 97.9 F-98.0 F 65-70 16-20 93-98/40-67 97-99 GENERAL: The patient is awake, alert, and fully oriented, in no acute distress. HEAD: Normal with no signs of trauma. EYES: PERRL, extraocular movements intact, sclera anicteric, conjunctiva clear. No ptosis. ENT: Ears normal, nares patent, oropharynx clear without exudates, moist mucous membranes. NECK: Trachea midline, full range of motion, supple. LUNGS: Breath sounds equal, clear to auscultation bilaterally, no wheezes, no crackles, no accessory muscle use, diminished to base HEART: Regular rate and rhythm, S1, S2 without murmur, rub or gallop. ABDOMEN: Soft, nontender, nondistended, normoactive bowel sounds, no guarding, no rebound, no hepatosplenomegaly, no masses. EXTREMITIES: 2+ pulses, warm, well-perfused, no edema. NEUROLOGICAL: Cranial nerves II through XII grossly intact. Normal speech, gait not observed. PSYCH: Normal mood, normal affect. SKIN: Warm, dry, normal turgor, no rashes or lesions noted Laboratory Results - last 24 hr 03/18/17 03/19/17 03/19/17 15:30 07:30 10:44 Puncture Site Left radial ABG pH 7.43 ABG pCO2 at Pt Temp 39.3 ABG pO2 at Pt Temp 135.0 H ABG HCO3 25.9 ABG O2 Sat (Measured) 99.1 H ABG O2 Content 16.8 ABG Base Excess 2.0 Francisco Test Positive O2 Delivery Device Nasal cannula Oxygen Flow Rate 4 Mechanical Rate No PEEP 0.0 Sodium 141 Potassium 4.2 Chloride 100 Carbon Dioxide 34 H Anion Gap 7 L BUN 23 H Creatinine 0.9 Random Glucose 96 Calcium 8.9 Pleural Fluid Source Pleural fluid Pleural Color Yellow Pleural Appearance Clear Pleural WBC 266 Pleural RBC 338 Pleural Neutrophils 3 Pleural Lymphocytes 60 Pleural Monocytes 3 Pleural Macrophages 32 Pleural Mesothelial 2 Pleural Total Protein 1.941 Pleural Albumin 1 Pleural LDH 69 Pleural Glucose 114.722 Pleural Amylase 15.188 CBC WBC 6.9 K/mm3 (4.0-10.8) 03/17/17 07:30 RBC 3.70 M/mm3 (3.60-5.2) 03/17/17 07:30 Hgb 11.5 GM/dl (10.7-15.3) 03/17/17 07:30 Hct 34.8 % (32.4-45.2) 03/17/17 07:30 MCV 94.2 fl (80-96) 03/17/17 07:30 MCH 31.2 pg (25.7-33.7) 03/17/17 07:30 MCHC 33.1 g/dl (32.0-36.0) 03/17/17 07:30 RDW 14.8 % (11.6-15.6) 03/17/17 07:30 Plt Count 187 K/MM3 (134-434) 03/17/17 07:30 MPV 10.6 fl (7.5-11.1) D 03/17/17 07:30 Neutrophils % 69.2 % (42.8-82.8) 03/17/17 07:30 Lymphocytes % 20.9 % (8-40) D 03/17/17 07:30 Monocytes % 6.2 % (3.8-10.2) 03/17/17 07:30 Eosinophils % 3.2 % (0-4.5) 03/17/17 07:30 Basophils % 0.5 % (0-2.0) 03/17/17 07:30 CMP Sodium 141 mmol/L (136-145) 03/19/17 07:30 Potassium 4.2 mmol/L (3.5-5.1) 03/19/17 07:30 Chloride 100 mmol/L (98-107) 03/19/17 07:30 Carbon Dioxide 34 mmol/L (22-28) H 03/19/17 07:30 Anion Gap 7 (8-16) L 03/19/17 07:30 BUN 23 mg/dl (7-18) H 03/19/17 07:30 Creatinine 0.9 mg/dl (0.6-1.3) 03/19/17 07:30 Creat Clearance w eGFR 52.69 (>60) 03/17/17 07:30 Random Glucose 96 mg/dl (74-106) 03/19/17 07:30 Calcium 8.9 mg/dl (8.4-10.2) 03/19/17 07:30 Phosphorus 3.4 mg/dl (2.5-4.6) 03/17/17 07:30 Magnesium 2.1 mg/dL (1.8-2.4) 03/17/17 07:30 Total Bilirubin 0.9 mg/dl (0.2-1.0) 03/17/17 07:30 AST 24 U/L (10-42) 03/17/17 07:30 ALT 25 U/L (10-40) 03/17/17 07:30 Alkaline Phosphatase 85 U/L (32-92) D 03/17/17 07:30 Creatine Kinase 63 IU/L (26-192) 03/13/17 07:00 Troponin I 0.22 ng/ml (0.03-0.50) 03/13/17 07:00 B-Natriuretic Peptide 8008.39 pg/ml (5-450) H 03/12/17 19:55 Total Protein 5.6 g/dl (6.4-8.3) L 03/17/17 07:30 Albumin 3.1 g/dl (3.5-5.0) L 03/17/17 07:30 Active Medications Generic Name Dose Route Start Last Admin Trade Name Freq PRN Reason Stop Dose Admin Albuterol/Ipratropium 1 amp 03/13/17 17:45 03/19/17 11:08 Duoneb - NEB 1 amp QIDR PAULINA Administration Famotidine 20 mg 03/17/17 22:00 03/19/17 09:56 Pepcid - PO 20 mg BID PAULINA Administration Furosemide 40 mg 03/19/17 10:00 03/19/17 09:57 Lasix Injection - IVPUSH 40 mg DAILY PAULINA Administration Heparin Sodium (Porcine) 5,000 unit 03/13/17 10:00 03/19/17 09:57 Heparin - SQ 5,000 unit BID PAULINA Administration Metoprolol Succinate 12.5 mg 03/14/17 11:00 03/19/17 10:00 Toprol Xl - PO Not Given DAILY PAULINA Mirtazapine 15 mg 03/13/17 22:00 03/18/17 21:22 Remeron - PO 15 mg HS PAULINA Administration Nystatin 1 applic 03/13/17 10:00 03/19/17 09:57 Mycostatin Ointment - TP 1 applic BID PAULINA Administration Potassium Chloride 20 meq 03/14/17 11:00 03/19/17 09:57 K-Dur - PO 20 meq BID PAULINA Administration Quetiapine Fumarate 12.5 mg 03/14/17 14:14 03/18/17 21:21 Seroquel - PO 12.5 mg HS PAULINA Administration Trazodone HCl 50 mg 03/13/17 20:15 03/18/17 21:22 Desyrel - PO 50 mg HS PAULINA Administration Microbiology 03/17/17 18:30 Pleural Fluid Gram Stain - Final 03/17/17 18:30 Pleural Fluid Body Fluid Culture - Preliminary NO AEROBIC GROWTH, 24 HRS 03/18/17 15:30 Pleural Fluid GABRIELLE Preparation - Preliminary 03/18/17 15:30 Pleural Fluid Fungal Culture - Preliminary 03/18/17 15:30 Pleural Fluid AFB Smear Concentration - Preliminary 03/18/17 15:30 Pleural Fluid Mycobacterial Culture - Preliminary 03/17/17 18:30 Pleural Fluid AFB Smear Concentration - Preliminary 03/17/17 18:30 Pleural Fluid Mycobacterial Culture - Preliminary 03/17/17 18:30 Pleural Fluid GABRIELLE Preparation - Preliminary 03/06/17 18:30 Pleural Fluid Fungal Culture - Preliminary IMAGING chest xray 03/12/17, bilateral pulmonary vascular congestion chest xray 03/15, bilateral pleural effusions and congestive changes, unchanged echo 03/05/17: moderated left pleural effusion, ef 60-65%, grade III diastolic dysfunction ASSESSMENT/PLAN: 1. CV [id number] diastolic congestive heart failure - continue lasix 40mg qd 2.4 kg weight loss noted, - daily weight, stict i/o - Cardiology and pulmonary following 2. Neuro/psych Dementia -Continue Seroquel and Trazodone -Fall risk precautions 3. F/E/N -Low sodium diet -Replete lytes as indicated 4. Ppx -Sqh -pepcid Dispo: daughter at bedside, requires inpatient services Visit type - Emergency Visit Emergency Visit: Yes ED Registration Date: 03/12/17 Care time: The patient presented to the Emergency Department on the above date and was hospitalized for further evaluation of their emergent condition. - New Patient This patient is new to me today: No - Critical Care Critical Care patient: No - Discharge Referral Referred to [facility] Med P.C.: No
--- NOTE | 2017-03-19 15:21 | PN ---
Progress Note, Physician History of Present Illness: No new complaints. Patient underwent right sided thoracentesis yesterday. Patient appears comfortable resting in chair. - Current Medication List Current Medications: Active Medications Albuterol/Ipratropium (Duoneb -) 1 amp NEB QIDR [facility] Last Admin: 03/19/17 11:08 Dose: 1 amp Famotidine (Pepcid -) 20 mg PO BID [facility] Last Admin: 03/19/17 09:56 Dose: 20 mg Furosemide (Lasix -) 80 mg PO DAILY [facility] Heparin Sodium (Porcine) (Heparin -) 5,000 unit SQ BID [facility] Last Admin: 03/19/17 09:57 Dose: 5,000 unit Metoprolol Succinate (Toprol Xl -) 12.5 mg PO DAILY [facility] Last Admin: 03/19/17 10:00 Dose: Not Given Mirtazapine (Remeron -) 15 mg PO [facility] Last Admin: 03/18/17 21:22 Dose: 15 mg Nystatin (Mycostatin Ointment -) 1 applic TP BID [facility] Last Admin: 03/19/17 09:57 Dose: 1 applic Potassium Chloride (K-Dur -) 20 meq PO BID [facility] Last Admin: 03/19/17 09:57 Dose: 20 meq Quetiapine Fumarate (Seroquel -) 12.5 mg PO [facility] Last Admin: 03/18/17 21:21 Dose: 12.5 mg Trazodone HCl (Desyrel -) 50 mg PO [facility] Last Admin: 03/18/17 21:22 Dose: 50 mg - Objective Vital Signs: Vital Signs Temperature 97.9 F 03/19/17 06:00 Pulse Rate 74 03/19/17 14:57 Respiratory Rate 16 03/19/17 09:59 Blood Pressure 95/40 03/19/17 09:59 O2 Sat by Pulse Oximetry (%) 98 03/19/17 14:57 Constitutional: Yes: No Distress Eyes: Yes: Conjunctiva Clear, EOM Intact HENT: Yes: Atraumatic, Normocephalic Cardiovascular: Yes: Regular Rate and Rhythm Respiratory: Yes: Diminished (at bases otherwise clear) Edema: Yes Edema: LLE: 1+, RLE: 1+ Labs: CBC, BMP 03/17/17 07:30 03/19/17 07:30 INR, PTT INR 1.10 (0.82-1.09) 03/12/17 19:55 Assessment/Plan 86 yo female with dementia, who is admitted with acute diastolic heart failure/ heart failure with preserved EF (HFpEF) due to hypertrophic cardiomyopathy. Echo on 03/05/17 demonstrated normal LVEF with grade III diastolic dysfunction ( restrictive pattern) with mod to severe LVH, mod MR, mod to severe TR, and mild pulm HTN. Differential diagnosis for hypertrophic cardiomyopathy is infiltrative myocardial disease (e.g. amlyloidosis) versus hypertensive heart disease. Prognosis is poor given extent of diastolic dysfunction and patient's advanced age. Right sided thoracentesis on 03/17/17 with removal of 1400 cc of transudative fluid Left sided thoracentesis on 03/18/17 with removal of 500 cc RECS: Continue diuresis but will change to furosemide 80 mg po daily. Would continue oral KCl supplementation with 20 mEq po daily. Continue metoprolol succinate 12.5 mg po daily. Patient is clinically improved following diuresis and bilateral thoracentesis. However, patient is likely to have recurrent admissions for heart failure given natural progression of disease. This was explained to patient's daughter at great length and the main goal of her treatment is to prevent/delay recurrent hospitalizations. Patient may be discharged tomorrow with outpatient follow-up in my office in 2- 3 weeks. Will see prn. Please call with questions. Plan discussed with hospitalist service and patient's daughter.
--- NOTE | 2017-03-19 16:49 | PATH ---
Cytology Non-Gynecological Report Patient Name: DESTINEY LINK [facility]. Rec. #: [id number] /Age/Gender: 1930 (Age: 86) / F Account: [id number] Location: [facility] Taken: 03/18/2017 Received: 03/18/2017 Reported: 03/19/2017 Physicians: Radha Banda M.D. Specimen(s) Received A: PLEURAL FLUID B: PLEURAL FLUID Clinical History Pleural effusion, congestive heart failure Final Diagnosis A & B. PLEURAL FLUID, THORACENTESIS: SATISFACTORY FOR EVALUATION NO MALIGNANT CELLS IDENTIFIED. MESOTHELIAL CELLS AND LYMPHOCYTES PRESENT. Electronically Signed Melissa Min M.D. Gross Description A. Approximately 50 cc of yellow fluid received fixed in 50% alcohol. Two cytofunnels and one cellblock prepared. B. Approximately 1500 cc of yellow fluid received fresh. Two cytofunnels and one cellblock prepared.
[2017-03-19] MEDS: MIRTAZAPINE 15 MG TABLET (FP) PO SCH (21:50)
[2017-03-19] MEDS: traZODone HCL 50 MG TABLET (FP) PO SCH (21:50)
[2017-03-19] MEDS: QUEtiapine FUMARATE 100 MG TABLET (FP) PO SCH (21:50)
[2017-03-20] MEDS: ALBUTEROL SO4 2.5/IPRATROPIUM 0.5 INH SOL 3 ML VIAL.NEB. NEB SCH ×4 (06:00→23:07)
--- NOTE | 2017-03-20 07:40 | PN ---
Progress Note, Physician History of Present Illness: pulmonary alert,nad,-tachypnea,-dyspnea - Current Medication List Current Medications: Active Medications Albuterol/Ipratropium (Duoneb -) 1 amp NEB QIDR [facility] Last Admin: 03/20/17 06:00 Dose: Not Given Famotidine (Pepcid -) 20 mg PO BID [facility] Last Admin: 03/19/17 21:50 Dose: 20 mg Furosemide (Lasix -) 80 mg PO DAILY [facility] Heparin Sodium (Porcine) (Heparin -) 5,000 unit SQ BID [facility] Last Admin: 03/19/17 21:51 Dose: 5,000 unit Metoprolol Succinate (Toprol Xl -) 12.5 mg PO DAILY [facility] Last Admin: 03/19/17 10:00 Dose: Not Given Mirtazapine (Remeron -) 15 mg PO [facility] Last Admin: 03/19/17 21:50 Dose: 15 mg Nystatin (Mycostatin Ointment -) 1 applic TP BID [facility] Last Admin: 03/19/17 21:59 Dose: 1 applic Potassium Chloride (K-Dur -) 20 meq PO DAILY [facility] Quetiapine Fumarate (Seroquel -) 12.5 mg PO HS [facility] Last Admin: 03/19/17 21:50 Dose: 12.5 mg Trazodone HCl (Desyrel -) 50 mg PO [facility] Last Admin: 03/19/17 21:50 Dose: 50 mg - Objective Vital Signs: Vital Signs Temperature 97.3 F L 03/20/17 06:00 Pulse Rate 75 03/20/17 06:00 Respiratory Rate 18 03/20/17 06:00 Blood Pressure 97/44 03/20/17 06:00 O2 Sat by Pulse Oximetry (%) 100 03/19/17 22:02 Constitutional: Yes: Calm, Thin Eyes: Yes: WNL HENT: Yes: WNL Neck: Yes: Supple Cardiovascular: Yes: Regular Rate and Rhythm, S1, S2 Respiratory: Yes: Diminished Gastrointestinal: Yes: Normal Bowel Sounds, Soft Extremities: Yes: WNL Edema: No Labs: Laboratory Tests 03/19/17 10:44 ABG pH 7.43 ABG pCO2 at Pt Temp 39.3 ABG pO2 at Pt Temp 135.0 H ABG HCO3 25.9 ABG O2 Sat (Measured) 99.1 H O2 Delivery Device Nasal cannula Oxygen Flow Rate 4 Problem List - Problems (1) Dyspnea due to congestive heart failure Code(s): I50.9 - HEART FAILURE, UNSPECIFIED (2) CHF (congestive heart failure) Code(s): I50.9 - HEART FAILURE, UNSPECIFIED Qualifiers: Congestive heart failure type: unspecified congestive heart failure type Congestive heart failure chronicity: acute on chronic Qualified Code(s): I50.9 - Heart failure, unspecified (3) Pulmonary HTN Code(s): I27.20 - PULMONARY HYPERTENSION, UNSPECIFIED (4) Pleural effusion Code(s): J90 - PLEURAL EFFUSION, NOT ELSEWHERE CLASSIFIED (5) Dementia Code(s): F03.90 - UNSPECIFIED DEMENTIA WITHOUT BEHAVIORAL DISTURBANCE Assessment/Plan IMP DYSPNEA IMPROVED DECOMENSATED CHF DIASTOLIC STABLE HYPERTROPHIC CARDIOMYOPATHY BILATERAL PLEURAL EFFUSIONS TRANSUDATE PULMONARY HTN DEMENTIA PLAN LASIX SUPPLEMENTAL O2 PRN MONITOR LYTES,RENAL FUNCTION DAILY WTS DR KULKARNI Problem List - Problems (1) Dyspnea due to congestive heart failure Code(s): I50.9 - HEART FAILURE, UNSPECIFIED (2) CHF (congestive heart failure) Code(s): I50.9 - HEART FAILURE, UNSPECIFIED Qualifiers: Congestive heart failure type: unspecified congestive heart failure type Congestive heart failure chronicity: acute on chronic Qualified Code(s): I50.9 - Heart failure, unspecified (3) Pulmonary HTN Code(s): I27.20 - PULMONARY HYPERTENSION, UNSPECIFIED (4) Pleural effusion Code(s): J90 - PLEURAL EFFUSION, NOT ELSEWHERE CLASSIFIED (5) Dementia Code(s): F03.90 - UNSPECIFIED DEMENTIA WITHOUT BEHAVIORAL DISTURBANCE
[2017-03-20 08:37] LABS: ANION GAP 11 (8-16); CALCIUM 8.8 mg/dl (8.4-10.2); CO2 32 mmol/L (22-28); CREATININE 0.9 mg/dl (0.6-1.3); GLUCOSE,RANDOM 106 mg/dl (74-106); MAGNESIUM 2.1 mg/dL (1.8-2.4)
--- NOTE | 2017-03-20 08:49 | DS ---
Physical Exam: SUBJECTIVE: Patient seen and examined, patient is confused appears comfortable. OBJECTIVE: This is an 86 year old female with a significant PMH of CHF who presented to the ED with B/L leg swelling and abdominal distension. Pt's legs have been increasingly swollen since January and now swelling is throughout entire B/L LE. Daughter also noticed abdominal distention over the past 2 days. She has been following with Dr. Solis as an outpatient who has increased her home diuretic dose without improvement. Pt has dementia and is unable to provide any information. She does admit to some recent SOB upon questioning. ER course was notable for: (1) BNP 8008, Trop 0.21 (2) BUN 26/Cr 0.9 Vital Signs Period Temp Pulse Resp BP Sys/Bardales Pulse Ox Last 24 Hr 97.3 F-98.9 F 55-75 16-20 95-111/40-44 98-100 PHYSICAL EXAM GENERAL: The patient is awake, alert, and fully oriented, in no acute distress. HEAD: Normal with no signs of trauma. EYES: PERRL, extraocular movements intact, sclera anicteric, conjunctiva clear. ENT: Ears normal, nares patent, oropharynx clear without exudates, moist mucous membranes. NECK: Trachea midline, full range of motion, supple. LUNGS: Breath sounds equal, clear to auscultation bilaterally, no wheezes, no crackles, no accessory muscle use. HEART: Regular rate and rhythm, S1, S2 without murmur, rub or gallop. ABDOMEN: Soft, nontender, nondistended, normoactive bowel sounds, no guarding, no rebound, no hepatosplenomegaly, no masses. EXTREMITIES: 2+ pulses, warm, well-perfused, no edema. NEUROLOGICAL: Cranial nerves II through XII grossly intact. Normal speech, gait not observed. PSYCH: Normal mood, normal affect. SKIN: Warm, dry, normal turgor, no rashes or lesions noted. LABS Laboratory Results - last 24 hr 03/19/17 03/19/17 03/20/17 07:30 10:44 07:30 Puncture Site Left radial ABG pH 7.43 ABG pCO2 at Pt Temp 39.3 ABG pO2 at Pt Temp 135.0 H ABG HCO3 25.9 ABG O2 Sat (Measured) 99.1 H ABG O2 Content 16.8 ABG Base Excess 2.0 Francisco Test Positive O2 Delivery Device Nasal cannula Oxygen Flow Rate 4 Mechanical Rate No PEEP 0.0 Sodium 141 141 Potassium 4.2 3.8 Chloride 100 98 Carbon Dioxide 34 H 32 H Anion Gap 7 L 11 BUN 23 H 25 H Creatinine 0.9 0.9 Random Glucose 96 106 Calcium 8.9 8.8 Magnesium 2.1 B-Natriuretic Peptide 8556.50 H Microbiology 03/18/17 15:30 Pleural Fluid AFB Smear Concentration - Preliminary 03/18/17 15:30 Pleural Fluid Mycobacterial Culture - Preliminary 03/17/17 18:30 Pleural Fluid AFB Smear Concentration - Preliminary 03/17/17 18:30 Pleural Fluid Mycobacterial Culture - Preliminary 03/18/17 15:30 Pleural Fluid Gram Stain - Final 03/17/17 18:30 Pleural Fluid Gram Stain - Final 03/17/17 18:30 Pleural Fluid Body Fluid Culture - Preliminary NO AEROBIC GROWTH, 24 HRS 03/18/17 15:30 Pleural Fluid GABRIELLE Preparation - Preliminary 03/18/17 15:30 Pleural Fluid Fungal Culture - Preliminary 03/17/17 18:30 Pleural Fluid GABRIELLE Preparation - Preliminary 03/17/17 18:30 Pleural Fluid Fungal Culture - Preliminary IMAGING chest xray 03/12/17, bilateral pulmonary vascular congestion chest xray 03/15, bilateral pleural effusions and congestive changes, unchanged echo 03/05/17: moderated left pleural effusion, ef 60-65%, grade III diastolic dysfunction HOSPITAL COURSE: Patient was admitted from the emergency department for [id number] diastolic congestive heart failure. Patient was diuresed with iv lasix. 2.4 kg weight loss noted, patient was transitioned to po lasix, Dr Harrell was consulted and followed. Moderate bilateral pleural effusions noted patient was symptomatic, Dr Drake Pacheco interventional radiologist consulted, thorancentesis performed, 03/17/17, right thorancentisis performed 1.4L removed, 03/18/17, left thorancentesis performed 0.5L removed under ultrasound in interventional radiology. Patient was much improved ambulated with the assistance of one person, 85% room after 6 minutes of flat surface walking, patient will require home oxygen. Dr Devlin, setter helper consulted. patient has a past medical history of dementia and home dose seroquel and trazodone was continued. PLAN - lengthy conversation with daughter, requesting discharge home, consulted with social work and S implemented at home - continue lasix 40mg daily - strict follow up with the ecologist technician within 1 week Date of Admission:03/12/17 Date of Discharge: 03/20/17 Minutes to complete discharge: 45 Discharge Summary Reason For Visit: SOB Current Active Problems CHF (congestive heart failure) (Acute) Dementia (Acute) Dyspnea due to congestive heart failure (Acute) Pleural effusion (Acute) Pulmonary HTN (Acute) Condition: Stable - Instructions Diet, Activity, Other Instructions: continue lasix daily please take your weight daily and keep a record follow up with the ecologist technician within 1 week continue all medications as prescribed if any new or persistent symptoms develop please return to the emergency department Referrals: Martínez Solis MD [Primary Care Provider] - Edmond Harrell MD [Staff Physician] - 1 Week Disposition: VNS/HOME HEALTH CARE - Home Medications Comprehensive Discharge Medication List: Ambulatory Orders Furosemide [Lasix] 40 mg PO BID 03/12/17 Mirtazapine [Remeron -] 15 mg PO DAILY 03/12/17 Quetiapine Fumarate [Seroquel] tab PO HS 03/12/17 RX: Trazodone HCl 50 mg PO HS 03/12/17 This patient is new to me today: No Emergency Visit: Yes ED Registration Date: 03/12/17 Care time: The patient presented to the Emergency Department on the above date and was hospitalized for further evaluation of their emergent condition. Critical Care patient: No - Discharge Referral Referred to [facility] Med P.C.: No
[2017-03-20 08:53] LABS: BASO % 0.7 % (0-2.0); EOS % 3.3 % (0-4.5); MCH 32.2 pg (25.7-33.7); MCHC 34.2 g/dl (32.0-36.0); MEAN PLT VOLUME 12.2 fl (7.5-11.1); NEUT % 69.7 % (42.8-82.8); PLATELET COUNT 194 K/MM3 (134-434); RDW 14.9 % (11.6-15.6); WHITE BLOOD COUNT 6.5 K/mm3 (4.0-10.8)
[2017-03-20] MEDS: NYSTATIN 100000 UNIT/GM TOPICAL OINTMENT 15 GM TUBE TP SCH ×2 (09:24→21:46)
[2017-03-20] MEDS: POTASSIUM CHLORIDE TABS 20 MEQ TABLET.ER (FP) PO SCH (09:27)
[2017-03-20] MEDS: FAMOTIDINE 20 MG TABLET PO SCH ×2 (09:27→21:45)
[2017-03-20] MEDS: METOPROLOL SUCCINATE 25 MG TAB.SR.24H (FP) PO SCH (09:27)
[2017-03-20] MEDS: FUROSEMIDE 40 MG TABLET (FP) PO SCH (09:27)
[2017-03-20 14:14] VITALS: TEMP 98.5
--- NOTE | 2017-03-20 15:45 | PATH ---
Cytology Non-Gynecological Report Patient Name: DESTINEY LINK [facility]. Rec. #: [id number] /Age/Gender: 1930 (Age: 86) / F Account: [id number] Location: [facility] Taken: 03/18/2017 Received: 03/19/2017 Reported: 03/20/2017 Physicians: Elizabet Cowan M.D. Helena Hay, FNP Specimen(s) Received LEFT PLEURAL FLUID Clinical History None given Final Diagnosis PLEURAL FLUID, LEFT, THORACENTESIS: SATISFACTORY FOR EVALUATION BENIGN (NO MALIGNANT CELLS IDENTIFIED) MESOTHELIAL CELLS, LYMPHOCYTES AND NEUTROPHILS PRESENT. Comment: Recommend correlation with clinical findings and follow up as clinically indicated. Also see [id number]. Electronically Signed Deo Montes De Oca M.D. Gross Description A. Approximately 50 cc of yellow fluid received fixed in 50% alcohol. Two cytofunnels and one cellblock prepared. B. Approximately 20 cc of yellow fluid received fresh. Two cytofunnels and one cellblock prepared.
[2017-03-20] MEDS ORDERED: QUEtiapine FUMARATE 25 MG TABLET (FP) PO SCH (21:33)
[2017-03-20] MEDS: MIRTAZAPINE 15 MG TABLET (FP) PO SCH (21:45)
[2017-03-20] MEDS: traZODone HCL 50 MG TABLET (FP) PO SCH (21:45)
[2017-03-20] MEDS ORDERED: QUEtiapine FUMARATE 25 MG TABLET (FP) PO ONE (23:32)
[2017-03-20] MEDS ORDERED: ACETAMINOPHEN 325 MG TABLET (FP) PO PRN (23:33)
[2017-03-21 06:44] VITALS: BP 117/52; PULSE 93
[2017-03-21] MEDS: ALBUTEROL SO4 2.5/IPRATROPIUM 0.5 INH SOL 3 ML VIAL.NEB. NEB SCH ×2 (06:44→12:14)
[2017-03-21] MEDS: FUROSEMIDE 40 MG TABLET (FP) PO SCH (10:00)
[2017-03-21] MEDS: FAMOTIDINE 20 MG TABLET PO SCH (10:00)
[2017-03-21] MEDS: POTASSIUM CHLORIDE TABS 20 MEQ TABLET.ER (FP) PO SCH (10:13)
[2017-03-21] MEDS: NYSTATIN 100000 UNIT/GM TOPICAL OINTMENT 15 GM TUBE TP SCH (10:13)
[2017-03-21] MEDS: METOPROLOL SUCCINATE 25 MG TAB.SR.24H (FP) PO SCH (10:14)
--- NOTE | 2017-03-21 12:39 | PN ---
Physical Exam: SUBJECTIVE: Patient seen and examined gabrielle was discharged yesterday however was awaiting arrangement of O2 at home no new complaints OBJECTIVE: Vital Signs Period Temp Pulse Resp BP Sys/Bardales Pulse Ox Last 24 Hr 98.5 F-98.5 F 93-99 18-20 106-118/46-91 92-100 Constitutional: Yes: Calm, Thin Eyes: Yes: WNL HENT: Yes: WNL Neck: Yes: Supple Cardiovascular: Yes: Regular Rate and Rhythm, S1, S2 Respiratory: Yes: Diminished Gastrointestinal: Yes: Normal Bowel Sounds, Soft Extremities: Yes: WNL Edema: No Active Medications Generic Name Dose Route Start Last Admin Trade Name Freq PRN Reason Stop Dose Admin Acetaminophen 650 mg 03/20/17 23:33 03/21/17 00:25 Tylenol - PO 650 mg Q4H PRN Administration FEVER OR PAIN Albuterol/Ipratropium 1 amp 03/13/17 17:45 03/21/17 12:14 Duoneb - NEB 1 amp QIDR PAULINA Administration Famotidine 20 mg 03/17/17 22:00 03/21/17 10:00 Pepcid - PO 20 mg BID PAULINA Administration Furosemide 80 mg 03/20/17 10:00 03/21/17 10:00 Lasix - PO 80 mg DAILY PAULINA Administration Metoprolol Succinate 12.5 mg 03/14/17 11:00 03/21/17 10:14 Toprol Xl - PO 12.5 mg DAILY PAULINA Administration Mirtazapine 15 mg 03/13/17 22:00 03/20/17 21:45 Remeron - PO 15 mg HS PAULINA Administration Nystatin 1 applic 03/13/17 10:00 03/21/17 10:13 Mycostatin Ointment - TP 1 applic BID PAULINA Administration Potassium Chloride 20 meq 03/20/17 10:00 03/21/17 10:13 K-Dur - PO 20 meq DAILY PAULINA Administration Quetiapine Fumarate 12.5 mg 03/20/17 21:33 03/20/17 21:49 Seroquel - PO 12.5 mg HS PAULINA Administration Trazodone HCl 50 mg 03/13/17 20:15 03/20/17 21:45 Desyrel - PO 50 mg HS PAULINA Administration ASSESSMENT/PLAN: This is an 86 year old female with a significant PMH of CHF who presented to the ED with B/L leg swelling and abdominal distension. Pt's legs have been increasingly swollen since January and now swelling is throughout entire B/L LE. Daughter also noticed abdominal distention over the past 2 days. She has been following with Dr. Solis as an outpatient who has increased her home diuretic dose without improvement. IMAGING chest xray 03/12/17, bilateral pulmonary vascular congestion chest xray 03/15, bilateral pleural effusions and congestive changes, unchanged echo 03/05/17: moderated left pleural effusion, ef 60-65%, grade III diastolic dysfunction HOSPITAL COURSE: Patient was admitted from the emergency department for [id number] diastolic congestive heart failure. Patient was diuresed with iv lasix. 2.4 kg weight loss noted, patient was transitioned to po lasix, Dr Harrell was consulted and followed. Moderate bilateral pleural effusions noted patient was symptomatic, Dr Drake Pacheco interventional radiologist consulted, thorancentesis performed, , right thorancentisis performed 1.4L removed, 03/18/17, left thorancentesis performed 0.5L removed under ultrasound in interventional radiology. Patient was much improved ambulated with the assistance of one person, 85% room after 6 minutes of flat surface walking, patient will require home oxygen. Home today in improved condition please refer to D/c summary from yesterday as no clinical change Visit type - Emergency Visit Emergency Visit: Yes ED Registration Date: 03/12/17 Care time: The patient presented to the Emergency Department on the above date and was hospitalized for further evaluation of their emergent condition. - New Patient This patient is new to me today: Yes Date on this admission: 03/21/17 - Critical Care Critical Care patient: No - Discharge Referral Referred to [facility] No
== END 2017-03-21 15:50 | disposition home health service (06) | DRG 292 ==
LOC: FER 19:00 → FM/S 22:13 → JSAMEDAYSX 03-18 13:59 → FM/S 03-18 16:16
PROVIDERS: ADMIT Internal Medicine; ATTEND Internal Medicine
PROC: 0W9930Z Drainage of Right Pleural Cavity with Drainage Device, Percutaneous Approach (ICD-10-PCS; principal; 2017-03-17)
PROC: 0W9B30Z Drainage of Left Pleural Cavity with Drainage Device, Percutaneous Approach (ICD-10-PCS; 2017-03-18)
DX: I11.0 Hypertensive heart disease with heart failure (principal); J90 Pleural effusion, not elsewhere classified; I50.33 Acute on chronic diastolic (congestive) heart failure; I42.2 Other hypertrophic cardiomyopathy; I27.20 Pulmonary hypertension, unspecified; F03.90 Unspecified dementia, unspecified severity, without behavioral disturbance, psychotic disturbance, mood disturbance, and anxiety; F32.9 Major depressive disorder, single episode, unspecified
CPT/HCPCS: 36415; 36600; 71010-TC; 76942; 80048; 80053; 81003; 82042; 82150; 82550; 82803; 82945; 83615; 83735; 83880; 84100; 84157; 84311; 84478; 84484; 85025; 85610; 87070; 87075; 87102; 87116; 87205; 87206; 87210; 87899; 88108; 88305-TC; 89051; 93005; 94010; 94640; 94761; 97116-GP; 97162-GP; 99284-25; J1644